=== PATIENT | female | born 1970 | race Caucasian/White ===

== ENCOUNTER 2022-01-05 14:19 | Outpatient (REF) | payer OTHER, SELFPAY ==
[2022-01-05 17:10] LABS: TSH reflex Free T4 0.94 uIU/mL (0.32-4.0)
== END 2022-01-05 14:20 | disposition home or self-care (01) ==
LOC: HO.HMGCLDS 14:19
PROVIDERS: PCP Internal Medicine; Visit Provider Internal Medicine
DX: E66.09 Other obesity due to excess calories (principal)
CPT/HCPCS: 36415; 84443

== ENCOUNTER 2022-05-19 07:38 | Outpatient (REF) | payer OTHER, SELFPAY ==
[2022-05-19 11:17] LABS: MANUAL DIFF FLAG NO
[2022-05-19 11:26] LABS: Basophils Absolute Auto 0.1 X10*3/uL (0.0-0.2); Basophils Percent Auto 1.1 % (0-2); Eosinophils Absolute Auto 0.2 X10*3/uL (0.0-0.4); Eosinophils Percent Auto 3.2 % (0-4); Hematocrit 41.5 % (37.0-47.0); Hemoglobin 13.6 g/dl (12.0-16.0); Imm Gran Abs Auto 0.02 X10*3/uL (0.00-0.03); Imm Gran Pct Auto 0.3 % (0.0-0.4); Lymphocytes Absolute Auto 2.2 X10*3/uL (1.2-4.9); Lymphocytes Percent Auto 35.7 % (20-40); Mean Corpuscular HGB Conc 32.8 g/dl (31.0-35.0); Mean Corpuscular Volume 94.5 fL (80.0-98.0); Mean Platelet Volume 10.4 fL (9.4-12.3); Monocytes Absolute Auto 0.4 X10*3/uL (0.1-1.2); Monocytes Percent Auto 5.9 % (2-11); Neutrophils Absolute Auto 3.4 x10*3/uL (2.0-8.3); Neutrophils Percent Auto 53.8 % (45-73); Platelet Count 338 X10*3/uL (160-400); Red Blood Count 4.39 X10*6/uL (4.20-5.50); Red Cell Distribution Width 12.8 % (11.0-16.0); White Blood Count 6.3 X10*3/uL (4.8-10.8)
[2022-05-19 11:46] LABS: Alanine Aminotransferase 64 U/L (0-31); Albumin Level 4.6 g/dL (3.5-5.0); Alkaline Phosphatase 142 U/L (39-117); Anion Gap 15 (12-20); Aspartate Amino Transferase 39 U/L (5-31); Bilirubin Total 0.7 mg/dL (0.0-1.0); Blood Urea Nitrogen 22 mg/dL (9-16); Calcium 9.6 mg/dL (8.4-10.2); Carbon Dioxide 26 mmol/L (22-29); Chloride 105 mmol/L (96-108); Cholesterol 220 mg/dL; Estimated Glomerular Filt Rate > 60; Glucose Fasting 107 mg/dL (60-99); HDL Cholesterol 66 mg/dL; LDL Cholesterol Calculated 135 mg/dl; Potassium 4.3 mmol/L (3.3-5.1); Sodium 142 mmol/L (135-145); Triglycerides 98 mg/dL
[2022-05-19 12:05] LABS: TSH reflex Free T4 1.62 uIU/mL (0.32-4.0); Vitamin D 25-OH Total 57.1 ng/mL (>30)
== END 2022-05-19 07:39 | disposition home or self-care (01) ==
LOC: HO.HMGCLDS 07:38
PROVIDERS: PCP Internal Medicine; Visit Provider Internal Medicine
DX: Z00.00 Encounter for general adult medical examination without abnormal findings (principal); E78.9 Disorder of lipoprotein metabolism, unspecified
CPT/HCPCS: 36415; 80053; 80061; 82306; 84443; 85025

== ENCOUNTER 2022-08-04 08:39 | Outpatient (REF) | payer OTHER, SELFPAY ==
[2022-08-04 12:38] LABS: Alanine Aminotransferase 51 U/L (0-31); Albumin Level 4.6 g/dL (3.5-5.0); Alkaline Phosphatase 135 U/L (39-117); Anion Gap 15 (12-20); Aspartate Amino Transferase 32 U/L (5-31); Bilirubin Total 0.5 mg/dL (0.0-1.0); Blood Urea Nitrogen 17 mg/dL (9-16); Calcium 9.6 mg/dL (8.4-10.2); Carbon Dioxide 26 mmol/L (22-29); Chloride 107 mmol/L (96-108); Cholesterol 252 mg/dL; Estimated Glomerular Filt Rate > 60; Gamma Glutamyl Transpeptidase 109 U/L (7-33); Glucose Fasting 113 mg/dL (60-99); HDL Cholesterol 68 mg/dL; LDL Cholesterol Calculated 164 mg/dl; Potassium 4.8 mmol/L (3.3-5.1); Sodium 143 mmol/L (135-145); Total Protein 7.1 g/dL (6.5-8.0); Triglycerides 101 mg/dL
[2022-08-06 03:49] LABS: HBS Num1 0.19 mIU/mL (0-7.99); HBc Num1 0.06 S/CO (0.00-0.79); HBsAGNum1 0.28 S/CO (0.00-0.99); Hepatitis B Core Antibody Nonreactive (Nonreactive); Hepatitis B Surface Antigen Negative (Negative); ~HepC Num1 0.09 S/CO (0.00-0.79); ~Hepatitis B Surface Antibody NONREACTIVE (Nonreactive); ~Hepatitis C Antibody Nonreactive (Nonreactive)
== END 2022-08-04 08:40 | disposition home or self-care (01) ==
LOC: HO.HMGCLDS 08:39
PROVIDERS: PCP Internal Medicine; Visit Provider Internal Medicine
DX: R79.89 Other specified abnormal findings of blood chemistry (principal); E78.9 Disorder of lipoprotein metabolism, unspecified
CPT/HCPCS: 36415; 80053; 80061; 82977; 86704; 86706; 86803; 87340

== ENCOUNTER → 2022-09-10 08:31 | Outpatient (BNVA) | payer OTHER, SELFPAY | PROVIDERS: PCP Internal Medicine; Visit Provider Dietitian, Registered | DX: E66.09 Other obesity due to excess calories (principal) | CPT/HCPCS: 97802 ==

== ENCOUNTER 2022-09-21 07:55 | Outpatient (REF) | payer OTHER, SELFPAY ==
--- NOTE | ~2022-09-21 | US_ITS ---
EXAMINATION: US ABDOMEN LIMITED WITH LIVER ELASTOGRAPHY CLINICAL INFORMATION: Abnormal findings of blood chemistry. COMPARISON: None available. TECHNIQUE: Real-time imaging of the abdominal viscera. Noninvasive ultrasound liver fibrosis assessment is performed using Juanito ElastPQ point quantification shear wave elastography (2D-SWE) with a C5-2 MHz transducer. Multiple elastography samples are obtained. FINDINGS: PANCREAS: Normal. The visualized pancreatic head and body are normal in appearance. The remainder of the pancreas is obscured from visualization by the overlying bowel gas. LIVER: The liver demonstrates normal size and shape with increased echogenicity. No focal lesion or intrahepatic biliary duct dilatation. The right lobe measures 15 cm in length. The left lobe measures 10.7 cm in length. Portal flow is towards the liver (hepatopetal). Shear wave liver elastography median stiffness is 1.61 m/s (reference: normal median stiffness is 1.3 m/s or less). IQR/median stiffness to assess sampling precision is 0.05 (reference: good quality data set is IQR/median stiffness of 0.15 or less). GALLBLADDER: 0.5 cm gallbladder wall polyp noted. The gallbladder is physiologically distended without evidence of stones, sludge, wall thickening or pericholecystic fluid. COMMON BILE DUCT: Normal in caliber measuring 0.3 cm in diameter. RIGHT KIDNEY: Normal. No hydronephrosis. No renal calculi or focal parenchymal lesions. The kidney measures 11.8 cm in maximum dimension. FREE FLUID: None. US/US abdomen jimenez w elastography IMPRESSION: 1. Hepatic steatosis. 2. Liver elastography: In the absence of other known clinical signs, measurements rule out compensated advanced chronic liver disease. If there are known clinical signs, further testing may be needed for confirmation. 3. 0.5 cm gallbladder wall polyp. Consider sonographic follow-up in 6 months. REFERENCE: Society of Radiologists in Ultrasound Liver Stiffness Thresholds (2020): LIVER STIFFNESS THRESHOLDS: *Liver Stiffness equal or less than 1.3 m/s: High probability of being normal. *Liver Stiffness less than 1.7 m/s: In the absence of other known clinical signs, rules out compensated advanced chronic liver disease. *Liver Stiffness 1.7-2.1 m/s: Suggestive of compensated advanced chronic liver disease but need further test for confirmation. *Liver Stiffness over 2.1 m/s: Rules in compensated advanced chronic liver disease. *Liver Stiffness over 2.4 m/s: Suggestive of clinically significant portal hypertension. QUALITY OF DATA SET: *IQR/Median value equal or less than 0.15 implies a quality data set. *IQR/Median value over 0.15 implies a poor quality data set. SIGNIFICANT CHANGE FROM PRIOR EXAM: Significant change if liver stiffness measurement is 10% or greater from prior exam. OTHER CONSIDERATIONS: The stage of liver fibrosis may be overestimated in the setting of acute hepatitis, liver inflammation, elevated liver function tests, hepatic vascular congestion, obstructive cholestasis, non-fasting state, and infiltrative diseases such as amyloidosis and lymphoma. In some patients with NAFLD, the liver stiffness thresholds for compensated advanced chronic liver disease may be lower. In causes other than viral hepatitis and NAFLD, liver stiffness thresholds are not well established.
== END 2022-09-21 07:56 | disposition home or self-care (01) ==
LOC: HO.US 07:55
PROVIDERS: PCP Internal Medicine; Visit Provider Internal Medicine
DX: R79.89 Other specified abnormal findings of blood chemistry (principal)
CPT/HCPCS: 76705; 76981

== ENCOUNTER → 2022-10-29 08:24 | Outpatient (BNVA) | payer OTHER, SELFPAY | PROVIDERS: PCP Internal Medicine; Visit Provider Dietitian, Registered | DX: E66.09 Other obesity due to excess calories (principal); Z68.33 Body mass index [BMI] 33.0-33.9, adult; Z71.3 Dietary counseling and surveillance | CPT/HCPCS: 97803 ==

== ENCOUNTER → 2022-11-22 15:58 | Outpatient (REF) | payer OTHER, SELFPAY | LOC: HO.SL 15:58 | PROVIDERS: PCP Internal Medicine; Visit Provider Internal Medicine | DX: G47.33 Obstructive sleep apnea (adult) (pediatric) (principal) | CPT/HCPCS: 95806 ==

== ENCOUNTER → 2022-11-22 16:07 | Outpatient (BNV) | payer OTHER, SELFPAY | PROVIDERS: PCP Internal Medicine; Visit Provider Internal Medicine | DX: G47.33 Obstructive sleep apnea (adult) (pediatric) (principal) | CPT/HCPCS: 95806 ==

== ENCOUNTER 2022-12-06 13:06 | Outpatient (AMB) | payer OTHER, SELFPAY ==
--- NOTE | 2022-12-06 13:14 | MHC.OFFVIS ---
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 Pt reports that she was witnessed apnea spells and recommended to have sleep study to assess sleep apnea. Pt had a home sleep study done. The home sleep study result was significant for severe degree of sleep apnea. The AHI was 50/hr and snoring for 9% of the sleep time. Nocturnal hypoxemia with average O2 sat 90%, lowest O2 sat 70% and O2 sat below 88% for 56 min. Pt reports gasping arousals, non refreshing sleep with daytime tiredness. She is on weight watcher program, but having difficulty losing wt. Sleep questionnaire: Have you ever been diagnosed with a sleep disorder? Yes, severe degree of sleep apnea. Have you ever had a sleep study in the past? Yes, had a home sleep study done. Have you ever been treated for a sleep disorder? Not yet. Do you take medications for a sleep disorder? No. Do you snore? Yes. Do you wake up gasping at night? Yes Do you have episodes of apneas? Yes If yes, are they witnessed? Yes. Do you have episodes of nocturnal chest pain or dyspnea? No. Do you have difficulty initiating sleep? No. Do you have difficulty maintaining sleep? Yes, sometimes. Do you wake up tired? Yes. Do you have headaches upon awakening? No. Do you wake up with dry mouth or throat? Yes. Do you have GERD? Yes. Do you have nocturia? Yes. Do you have nocturnal leg cramps? Not often. Do you have symptoms of restless legs? No. Do you act out your dreams? No. Sleep hygiene questionnaire: What is your usual sleep routine? Usual bedtime is at 12 am; Usual wake up time is at 6am . Do you take naps? Weekend. Is your sleep environment cool, dark, and quiet? Yes Do you exercise? Yes. walk daily. Do you take caffeine or other stimulants? 2 cups of coffee a day. Do you use electronics in bed? Yes. What is your work schedule? 8 am-5 pm Hypersomnolence questionnaire: Do you have daytime tiredness or fatigue? Yes. Do you easily fall asleep when inactive? No. Have you ever had episodes of sudden weakness? No. Have you ever had episodes of sudden weakness associated with strong emotions? No. PFSH Medical History Venous thrombosis Family History Mother Alzheimer disease Social History Housing: House Alcohol intake: current Alcohol intake frequency: 0-2 drinks per day Alcohol type: wine Patient Tobacco Use Status: Never used Tobacco e-Cigarette/Vaping Use: Never Used service: No Current occupational status: employed Cognitive needs: No Hearing needs: No Vision needs: Yes Review of Systems Const All systems reviewed & are unremarkable except as noted in HPI and below ENT Reports Normal hearing present Neuro Reports Normal hearing present Physical Exam Vital Signs: Last Vital Signs Pulse 89 12/06/22 13:16 BP 118/66 12/06/22 13:16 Pulse Ox 95 12/06/22 13:16 Oxygen Delivery Method Room Air 12/06/22 13:16 BMI result Body Mass Index 33.8 Const General: cooperative Nutritional Appearance: obese Orientation/consciousness: patient oriented x3 Neck Neck: Yes full ROM and Yes supple Resp Effort & Inspection: normal respiratory effort and able to speak in complete sentences Neuro General: patient oriented x3 and gait normal Cranial nerves: Yes Bilaterally intact EOM present, Yes Normal facial strength present, Yes Midline tongue present, Yes Symmetric palate elevation present, Yes Normal hearing present, Yes Ability to bilaterally rotate head present and Yes Ability to bilaterally elevate shoulders present Cognition (Neuro): normal cognition Gait exam (Neuro): Normal gait present Motor exam (neuro): 5/5 motor strength present throughout, Pronator motor function not present and no tremor noted Psych Appearance: grossly normal Mental Status: mental status grossly normal Speech and movement: Normal speech and movement present Affect: Anxious affect present Attitude: cooperative Assessment & Plan Assessment & Plan (1) Sleep apnea: Comment: A severe degree of sleep apnea. The AHI was 50/hr and oxygen jimmy was 70%. Code(s): G47.30 - Sleep apnea, unspecified (2) Hypoxemia associated with sleep: Code(s): G47.36 - Sleep related hypoventilation in conditions classified elsewhere Plan Start APAP at [id number] with x1 night pulse oximetry monitoring. Stressed compliance, use CPAP nightly and more than 4 hours. Advised patient to sleep on her left side. Wt reduction advised. Coding Level of Care Code New Pt Level 4 (08706) Diagnoses Sleep apnea G47.30 Hypoxemia associated with sleep G47.36
[2022-12-06 13:16] VITALS: BP 118/66; PULSE 89; O2SAT 95; BMI 33.8
== END 2022-12-06 13:53 | disposition home or self-care (01) ==
LOC: HO.HSMC 13:07
PROVIDERS: PCP Internal Medicine; Visit Provider Nurse Practitioner Family
DX: G47.30 Sleep apnea, unspecified (principal); G47.36 Sleep related hypoventilation in conditions classified elsewhere
CPT/HCPCS: 99204

== ENCOUNTER → 2022-12-06 13:06 | Outpatient (BNVA) | payer OTHER, SELFPAY | PROVIDERS: PCP Internal Medicine; Visit Provider Nurse Practitioner Family ==

== ENCOUNTER 2022-12-08 06:51 | Outpatient (REF) | payer OTHER, SELFPAY ==
[2022-12-08 11:34] LABS: Estimated Average Glucose 111 mg/dL; Hemoglobin A1c % 5.5 %
[2022-12-08 11:53] LABS: Alanine Aminotransferase 40 U/L (0-31); Albumin Level 4.5 g/dL (3.5-5.0); Alkaline Phosphatase 110 U/L (39-117); Anion Gap 15 (12-20); Aspartate Amino Transferase 27 U/L (5-31); Bilirubin Total 0.3 mg/dL (0.0-1.0); Blood Urea Nitrogen 19 mg/dL (9-16); Calcium 9.7 mg/dL (8.4-10.2); Carbon Dioxide 23 mmol/L (22-29); Chloride 109 mmol/L (96-108); Cholesterol 197 mg/dL; Estimated Glomerular Filt Rate > 60; Glucose Fasting 108 mg/dL (60-99); HDL Cholesterol 52 mg/dL; LDL Cholesterol Calculated 125 mg/dl; Potassium 4.1 mmol/L (3.3-5.1); Sodium 143 mmol/L (135-145); Total Protein 7.3 g/dL (6.5-8.0); Triglycerides 103 mg/dL
[2022-12-08 12:11] LABS: TSH reflex Free T4 1.65 uIU/mL (0.32-4.0)
== END 2022-12-08 06:52 | disposition home or self-care (01) ==
LOC: HO.HMGCLDS 06:51
PROVIDERS: PCP Internal Medicine; Visit Provider Internal Medicine
DX: E66.09 Other obesity due to excess calories (principal); R73.9 Hyperglycemia, unspecified
CPT/HCPCS: 36415; 80053; 80061; 83036; 84443

== ENCOUNTER 2022-12-11 08:26 | Outpatient (AMB) | payer OTHER, SELFPAY ==
--- NOTE | 2022-12-11 08:32 | MHC.PC.OV ---
Vital Signs 12/11/22 08:36 Height 5 ft 6 in Weight 209 lb BMI 33.7 BP 118/80 Blood Pressure Location Lt brachial Position Sitting Pulse 82 Pulse Source Pulse Oximeter Pulse Oximetry (%) 96 Oxygen Delivery Method Room Air Intake Visit Reasons: 4 month follow up ( weight/cholesterol ) Intake Note: Pt is here today for a follow up visit. Allergies No Known Allergies [No Known Allergies*] Allergy (Verified 12/11/22 08:36) Medication List - Last Reconciled 12/11/22 by Marija Garcia MD omeprazole magnesium (Prilosec OTC) 20 mg PO DAILY Tobacco use date assessed: 12/11/22 Dental Screening Dental Screen Date: 12/11/22 Did you have a dental visit in the last 12 months?: Yes Did you have a dental problem in the last 6 months where you did not have access to dental care?: No Was dental information given to patient?: Patient has dentist HPI 4 month follow up ( weight/cholesterol ) HPI Details Pt presents for hyperlipid, diet controlled. Patient underwent sleep study for witnessed sleep apnea was found to have severe sleep apnea and CPAP machine with auto PAP setting in 6-20 cm of water was recommended. Patient reports daytime sleepness. She complains of dyspnea on exertion when walking up a few steps. Patient exercises on a treadmill irregularly. Patient denies exercise induced chest pain or palpitations. She denies PND orthopnea. Patient complains of right elbow pain for 2 months worse when using it, lifting or manipulating with a R hand. PFSH Medical History Venous thrombosis Family History Mother Alzheimer disease Social History Housing: House Alcohol intake: current Alcohol intake frequency: 0-2 drinks per day Alcohol type: wine Patient Tobacco Use Status: Never used Tobacco e-Cigarette/Vaping Use: Never Used service: No Current occupational status: employed Cognitive needs: No Hearing needs: No Vision needs: Yes Questionnaire Thrive Questionnaire Date Thrive assessed: 05/18/22 ИВАН-7 AMB Questionnaire ИВАН-7 Date ИВАН - 7 assessed: 05/18/22 Source: Developed by Drs. Grayson Garcia, Rosa Benavidez, Juan Ramon Mckeon and colleagues, with an educational yady from [employer]. Review of Systems Const All systems reviewed & are unremarkable except as noted in HPI and below Reports no additional complaints Eyes Reports no additional complaints ENT Reports no additional complaints Card Reports no additional complaints Resp Reports no additional complaints GI Reports no additional complaints Reports no additional complaints Physical exam (Primary Care) Vital Signs: Last Vital Signs Pulse 82 12/11/22 08:36 BP 118/80 12/11/22 08:36 Pulse Ox 96 12/11/22 08:36 Oxygen Delivery Method Room Air 12/11/22 08:36 BMI result Body Mass Index 33.7 Tobacco/Smoking Status: Tobacco use Status Tobacco use date assessed 12/11/22 12/11/22 08:40 Patient Tobacco Use Status Never used Tobacco 12/11/22 08:40 e-Cigarette/Vaping Use Never Used 12/11/22 08:32 Thrive Assessment: Date of Thrive Assessment Date Thrive assessed 05/18/22 12/11/22 08:32 Const General: no acute distress HENMT Ears: hearing grossly normal bilaterally Neck Neck: Yes supple Resp Effort & Inspection: normal respiratory effort Auscultation: clear to auscultation bilaterally Cardio Rhythm: regular rhythm Heart sounds: S1 normal heart sound present and S2 normal heart sound present Extrem Other: Reproducible tenderness in the right elbow no soft tissue swelling, 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 If the symptoms persist she will be referred for physical therapy (3) Sleep apnea: Comment: A severe degree of sleep apnea. The AHI was 50/hr and oxygen jimmy was 70%. Start on the CPAP with autoPAP OF 6-20 cm of H2O Code(s): G47.30 - Sleep apnea, unspecified Plan: Patient will start CPAP and will follow-up in 6 weeks. She will need overnight oximetry checked after she is established on the CPAP to check for nocturnal hypoxia (4) Hyperlipidemia: Code(s): E78.5 - Hyperlipidemia, unspecified Plan: Significantly improved on diet. Continue low-cholesterol diet and exercise Orders: Orders XR chest 1V Today R06.09 - Other forms of dyspnea CA echo transthoracic complete Today R06.09 - Other forms of dyspnea Medications: New CPAP (CPAP Machine/Device) auto PAP at pressure 6-20 cm H2O 1 ea 0RF meloxicam 15 mg PO DAILY 10 tabs 0RF Coding Level of Care Code Est Pt Level 4 (26184) Diagnoses LUND (dyspnea on exertion) R06.09 Right elbow tendinitis M77.8 Sleep apnea G47.30 Hyperlipidemia E78.5
[2022-12-11 08:36] VITALS: BP 118/80; PULSE 82; O2SAT 96; BMI 33.7
== END 2022-12-11 09:19 | disposition home or self-care (01) ==
PROVIDERS: Visit Provider Internal Medicine
DX: R06.09 Other forms of dyspnea (principal); M77.8 Other enthesopathies, not elsewhere classified; G47.30 Sleep apnea, unspecified; E78.5 Hyperlipidemia, unspecified
CPT/HCPCS: 99214

== ENCOUNTER 2022-12-11 09:16 | Outpatient (REF) | payer OTHER, SELFPAY ==
--- NOTE | ~2022-12-11 | XR_ITS ---
EXAMINATION: XR CHEST CLINICAL INFORMATION: Dyspnea COMPARISON: None available. TECHNIQUE: 2 views of the chest were obtained. FINDINGS: No significant abnormality is noted involving the heart, lungs, mediastinum, or soft tissues tissues. Multiple old right rib fractures. XR/XR chest 2V IMPRESSION: No acute cardiopulmonary disease.
== END 2022-12-11 09:17 | disposition home or self-care (01) ==
LOC: HO.HMGCX 09:16
PROVIDERS: PCP Internal Medicine; Visit Provider Internal Medicine
DX: R06.09 Other forms of dyspnea (principal)
CPT/HCPCS: 71046

== ENCOUNTER 2022-12-17 08:27 | Outpatient (AMB) | payer OTHER, SELFPAY ==
[2022-12-17 08:34] VITALS: BMI 34.0
--- NOTE | 2022-12-17 08:34 | A.OFFVIS_ITS ---
Intake VS Expanded 12/17/22 08:34 Height 5 ft 6 in Weight 210 lb 12.191 oz BMI 34.0 Intake Visit Reasons: obesity Allergies No Known Allergies [No Known Allergies*] Allergy (Verified 12/11/22 08:36) HPI Nutrition Presentation Details Pt presents for MNT f/u for obesity Recently dx with sleep apnea Pt is motivated reports starting to use weight watchers point system. Goal 23 points (ranges 23-40) . Started the prog 3 wks ago. Pt finds this to be a helpful method for healthier meal planning and tracking. Keeps physically active at work plus walking on treadmill 1/2 hr (4.5 MPH rate) Most Recent Diabetes Results: Cholesterol 197 mg/dL 12/08/22 HDL Cholesterol 52 mg/dL 12/08/22 Triglycerides 103 mg/dL 12/08/22 Creatinine 0.75 mg/dL (0.5-1.4) 12/08/22 Blood Urea Nitrogen 19 mg/dL (9-16) H 12/08/22 Sodium 143 mmol/L (135-145) 12/08/22 Potassium 4.1 mmol/L (3.3-5.1) 12/08/22 Chloride 109 mmol/L (96-108) H 12/08/22 Carbon Dioxide 23 mmol/L (22-29) 12/08/22 Calcium 9.7 mg/dL (8.4-10.2) 12/08/22 AST 27 U/L (5-31) 12/08/22 ALT 40 U/L (0-31) H 12/08/22 Total Protein 7.3 g/dL (6.5-8.0) 12/08/22 Albumin 4.5 g/dL (3.5-5.0) 12/08/22 [facility] Medical History Venous thrombosis Family History Mother Alzheimer disease Social History Housing: House Alcohol intake: current Alcohol intake frequency: 0-2 drinks per day Alcohol type: wine Patient Tobacco Use Status: Never used Tobacco e-Cigarette/Vaping Use: Never Used service: No Current occupational status: employed Cognitive needs: No Hearing needs: No Vision needs: Yes Assessment & Plan Assessment & Plan (1) Obesity due to excess calories: Code(s): E66.09 - Other obesity due to excess calories Plan: Educate Pt on reduction Used wt : 95 kg Est kcal as per MSJ: 2162-250 = 1912 (40% carb, 30% fat/prot) Est fluid needs: 2375 ml/d (25 ml/kg bw) Rec fiber: increase to 8-10 g per day and gradually increase as tolerated Rec Na: < 1500 2000 mg /d Educate patient on: (R= Reviewed, V = verbalizes understanding N/R= Needs review N/A= not applicable) * Food sources of carbohydrates and serving adequate serving sizes : R * Difference between complex carbohydrates and simple carbohydrates, role of fiber: R * Differences between fats (MUFA/PUFA/saturated fats, trans fats) and food sources of various fats: R * Food sources of sodium and salt and healthy modifications for heart health and kidney health: N/R * Vitamins and minerals: R * How to interpret food labels: R * Healthy Plate method concept: R V * Physical activity: benefits and precaution: R Patient Instructions: Continue working on practicing mindful eating strategies, eating slow, savoring foods while reducing on portion sizes Work on meal prep to help with staying within recommended points the majority of the gayathri Coding Level of Care Code Nutr Indiv Subseq (92598) Diagnoses Obesity due to excess calories E66.09
== END 2022-12-17 09:01 | disposition home or self-care (01) ==
PROVIDERS: PCP Internal Medicine; Visit Provider Dietitian, Registered
DX: E66.09 Other obesity due to excess calories (principal)

== ENCOUNTER → 2022-12-17 08:27 | Outpatient (BNVA) | payer OTHER, SELFPAY | PROVIDERS: PCP Internal Medicine; Visit Provider Dietitian, Registered | DX: E66.09 Other obesity due to excess calories (principal); Z68.34 Body mass index [BMI] 34.0-34.9, adult; Z71.3 Dietary counseling and surveillance | CPT/HCPCS: 97803 ==

== ENCOUNTER → 2023-01-08 15:47 | Outpatient (REF) | payer OTHER, SELFPAY ==
--- NOTE | 2023-01-08 15:51 | CA_ITS ---
Transthoracic Echocardiogram Patient (Last, First, Middle): Roz Interiano Kay Gender: Female Date of : 1970 Age: 52 Procedure Date: 01/08/2023 Procedure Type: Transthoracic Echocardiogram Location: OP Height: 167.64 cm Weight: 90.72 kg BSA: 2.00 m2 Heart Rate: bpm BP: 128 / 70 mmHg Multimedia Journalist: Referring MD: Marija Garcia MD Symptoms: R06.09 - Other forms of dyspnea Study Quality: Fair ECG Rhythm: Sinus Conclusions: - The left ventricular systolic function is normal. The visually estimated ejection fraction is between 65-70%. - There is mildly increased left ventricular wall thickness. - No obvious valvular pathology seen on this study. Findings Left Ventricle Normal left ventricular cavity size. There is mildly increased left ventricular wall thickness. The left ventricular systolic function is normal. The visually estimated ejection fraction is between 65-70%. There is no evidence of regional wall motion abnormalities. Evidence suggests grade I (mild) diastolic dysfunction. Right Ventricle Mildly increased right ventricular cavity size. There is normal right ventricular systolic function. Atria Both atria are normal in size. Aortic Valve The aortic valve was not well visualized. There is no aortic valve stenosis. There is no aortic valve regurgitation. Mitral Valve The mitral valve appears normal. There is no mitral valve regurgitation. There is no mitral valve stenosis. Pulmonic Valve The pulmonic valve is likely normal. Tricuspid Valve Normal tricuspid valve structure. There is no tricuspid valve regurgitation. There is no evidence of pulmonary hypertension. Great Vessels The asc aorta is normal in size. Venous The inferior vena cava is normal in size and collapses greater than 50% with inspiration. Pericardium/Pleural There is no evidence of pericardial effusion. Prior Study Comparison No prior study available for comparison. Recommendations, Care & Conclusions No obvious valvular pathology seen on this study. Measurements 2D Linear Measurements IVSd: 1.30 0.6-0.9/0.6-1.0 cm LVIDd: 3.42 3.9-5.3/4.2-5.9 cm LVIDd Index: 1.71 2.4-3.2/2.2-3.1 cm/m2 LVIDs: 1.98 2.0-3.6 cm LVPWd: 1.20 0.7-1.1 cm Ao Root: 3.20 2.1-3.5 cm LA Diam: 3.50 2.7-3.8/3.0-4.0 cm LAIDs Index: 1.75 1.5-2.3 cm/m2 LV Mass: 174.17 67-162/88-224 g LV Mass Index: 87.09 43-95/49-115 g/m2 LVOT Diam: 2.20 3.0+(-)1.3 cm 2D Systolic Function EF 4C: 58.20 >55% EF 2C: 66.50 >55% EF BiP: 62.30 >55% Mitral Valve MV Pk E: 0.41 MV PK A: 0.78 MV Decel Time: 159.00 E/A: 0.50 E'Lateral: 6.64 E'Medial: 5.00 E/E' Med: 8.10 E/E' Lat: 6.10 PHT: 47.00 MVA PHT: 4.68 Decel Whiteside: 2.56 Aortic Valve AoV Pk Aaron: 1.26 AoV Mn Aaron: 0.81 AoV VTI: 0.28 AoV Pk Grad: 6.00 Aov Mn Grad: 3.00 ANIL Cont.VTI: 3.94 LVOT LVOT Pk Aaron: 1.10 LVOT Mn Aaron: 0.65 LVOT VTI: 0.29 LVOT Pk Grad: 5.00 LVOT Mn Grad: 2.00 LVOT Diam: 2.20 LVOT Area: 3.80 Diastolic Function MV Pk E: 0.41 MV Pk A: 0.78 E/A: 0.50 E'Medial: 5.00 E/E' Med: 8.10 E' Laterial: 6.64 E/E' Lat: 6.10 Right Ventricle TAPSE (mm): 33.00 TVS' Aaron: 15.00 Tricuspid Valve TR Pk Aaron: 1.60 TR Pk Grad: 10.00 RA Press: 3.00 RVSP: 13.00 Great Vessels Aorta Ao Root-2D: 3.20 2.0-3.7 cm Ao Asc: 3.50 2.1-3.4 cm Pulmonary Valve PV Pk Aaron: 0.95 Peak PV Grad: 4.00 Updated in Other Vendor System with Status of Final Stewart Orozco MD electronically signed on 01/09/2023 11:10:53 AM with status of Final
== END ==
LOC: HO.CARD 15:47
PROVIDERS: PCP Internal Medicine; Visit Provider Internal Medicine
DX: R06.09 Other forms of dyspnea (principal)
CPT/HCPCS: 93306

== ENCOUNTER → 2023-01-08 15:51 | Outpatient (BNV) | payer OTHER, SELFPAY | PROVIDERS: PCP Internal Medicine; Visit Provider Internal Medicine | DX: I51.9 Heart disease, unspecified (principal) | CPT/HCPCS: 93306 ==

== ENCOUNTER 2023-05-03 08:02 | Outpatient (AMB) | payer OTHER, SELFPAY ==
--- NOTE | 2023-05-03 08:16 | MHC.OFFVIS ---
Intake Vital Signs 05/03/23 08:17 Height 5 ft 6 in Weight 211 lb 6 oz BMI 34.1 BP 112/76 Blood Pressure Location Rt brachial Position Sitting Respiration 16 Pulse 77 Pulse Source Pulse Oximeter Pulse Oximetry (%) 95 Oxygen Delivery Method Room Air Intake Visit Reasons: 4m f/u Sleep Apnea - Confirmed Intake Note: Pt presents to the office for 4 month follow up sleep apnea. Adjutant General Required: No Allergies No Known Allergies [No Known Allergies*] Allergy (Verified 05/03/23 08:17) HPI HPI Comments History of Present Illness Details 53 y/o female patient presents for follow up of sleep apnea. The home sleep study result was significant for severe degree of sleep apnea. The AHI was 50/hr and snoring for 9% of the sleep time. Nocturnal hypoxemia with average O2 sat 90%, lowest O2 sat 70% and O2 sat below 88% for 56 min. Pt started CPAP at [id number]. The CPAP compliance and therapy response (02/02/23-05/02/23) reviewed. The usage days 100 % and the average usage hours 6 hrs 30 min. The max pressure was 11.2 and the AHI was 1.8/hr. Pt reports she sleeps well, rested and wakes up refreshed. She feels more energy during daytime. [facility] Medical History Venous thrombosis Family History Mother Alzheimer disease Social History Housing: House Alcohol intake: current Alcohol intake frequency: 0-2 drinks per day Alcohol type: wine Patient Tobacco Use Status: Never used Tobacco e-Cigarette/Vaping Use: Never Used service: No Current occupational status: employed Cognitive needs: No Hearing needs: No Vision needs: Yes Review of Systems Const All systems reviewed & are unremarkable except as noted in HPI and below ENT Reports Normal hearing present Neuro Reports Normal hearing present Physical Exam Vital Signs: Last Vital Signs Pulse 77 05/03/23 08:17 Resp 16 05/03/23 08:17 BP 112/76 05/03/23 08:17 Pulse Ox 95 05/03/23 08:17 Oxygen Delivery Method Room Air 05/03/23 08:17 BMI result Body Mass Index 34.1 Const General: cooperative Nutritional Appearance: obese Orientation/consciousness: patient oriented x3 Neck Neck: Yes full ROM and Yes supple Resp Effort & Inspection: normal respiratory effort and able to speak in complete sentences Neuro General: patient oriented x3 and gait normal Cranial nerves: Yes Bilaterally intact EOM present, Yes Normal facial strength present, Yes Midline tongue present, Yes Symmetric palate elevation present, Yes Normal hearing present, Yes Ability to bilaterally rotate head present and Yes Ability to bilaterally elevate shoulders present Cognition (Neuro): normal cognition Gait exam (Neuro): Normal gait present Motor exam (neuro): 5/5 motor strength present throughout, Pronator motor function not present and no tremor noted Psych Appearance: grossly normal Mental Status: mental status grossly normal Speech and movement: Normal speech and movement present Affect: Anxious affect present Attitude: cooperative Assessment & Plan Assessment & Plan (1) Sleep apnea: Comment: A severe degree of sleep apnea. The AHI was 50/hr and oxygen jimmy was 70%. Start on the CPAP with autoPAP OF 6-20 cm of H2O Code(s): G47.30 - Sleep apnea, unspecified (2) Hypoxemia associated with sleep: Code(s): G47.36 - Sleep related hypoventilation in conditions classified elsewhere Plan Continue to use APAP at [id number] as patient experiences good clinical effects, rested sleep with daytime tiredness has resovled. Stressed compliance, use CPAP nightly and more than 4 hours. Advised patient to sleep on her left side. Wt reduction advised. Coding Level of Care Code Est Pt Level 3 (75924) Diagnoses Sleep apnea G47.30 Hypoxemia associated with sleep G47.36
[2023-05-03 08:17] VITALS: BP 112/76; PULSE 77; RESP 16; O2SAT 95; BMI 34.1
== END 2023-05-03 08:37 | disposition home or self-care (01) ==
PROVIDERS: PCP Internal Medicine; Visit Provider Nurse Practitioner Family
DX: G47.30 Sleep apnea, unspecified (principal); G47.36 Sleep related hypoventilation in conditions classified elsewhere
CPT/HCPCS: 99213

== ENCOUNTER → 2023-05-03 08:02 | Outpatient (BNVA) | payer OTHER, SELFPAY | PROVIDERS: PCP Internal Medicine; Visit Provider Nurse Practitioner Family ==

== ENCOUNTER 2023-05-20 06:13 | Outpatient (REF) | payer OTHER, SELFPAY ==
[2023-05-20 11:39] LABS: MANUAL DIFF FLAG NO
[2023-05-20 11:57] LABS: Basophils Absolute Auto 0.1 X10*3/uL (0.0-0.2); Eosinophils Absolute Auto 0.3 X10*3/uL (0.0-0.4); Hematocrit 42.6 % (37.0-47.0); Hemoglobin 13.7 g/dl (12.0-16.0); Imm Gran Abs Auto 0.03 X10*3/uL (0.00-0.03); Imm Gran Pct Auto 0.4 % (0.0-0.4); Lymphocytes Absolute Auto 2.3 X10*3/uL (1.2-4.9); Lymphocytes Percent Auto 32.4 % (20-40); Mean Corpuscular HGB Conc 32.2 g/dl (31.0-35.0); Mean Corpuscular Hemoglobin 31.1 pg (27.0-33.0); Mean Corpuscular Volume 96.6 fL (80.0-98.0); Mean Platelet Volume 10.5 fL (9.4-12.3); Monocytes Absolute Auto 0.4 X10*3/uL (0.1-1.2); Monocytes Percent Auto 5.8 % (2-11); Neutrophils Absolute Auto 4.1 x10*3/uL (2.0-8.3); Neutrophils Percent Auto 56.4 % (45-73); Platelet Count 315 X10*3/uL (160-400); Red Blood Count 4.41 X10*6/uL (4.20-5.50); Red Cell Distribution Width 12.3 % (11.0-16.0); White Blood Count 7.2 X10*3/uL (4.8-10.8)
[2023-05-20 12:08] LABS: Estimated Average Glucose 111 mg/dL; Hemoglobin A1c % 5.5 % (<6.0)
[2023-05-20 12:22] LABS: Alanine Aminotransferase 48 U/L (0-31); Albumin Level 4.5 g/dL (3.5-5.0); Alkaline Phosphatase 126 U/L (39-117); Anion Gap 12 (12-20); Aspartate Amino Transferase 32 U/L (5-31); Bilirubin Total 0.4 mg/dL (0.0-1.0); Blood Urea Nitrogen 19 mg/dL (9-16); Calcium 9.5 mg/dL (8.4-10.2); Carbon Dioxide 27 mmol/L (22-29); Chloride 106 mmol/L (96-108); Cholesterol 247 mg/dL (<200); Creatinine Urine 108.69 mg/dL; Estimated Glomerular Filt Rate > 60; Glucose Fasting 97 mg/dL (60-99); HDL Cholesterol 64 mg/dL (>40); LDL Cholesterol Calculated 151 mg/dL (<100); Microalbum/Creatinine Ratio Ur 18.4 ug/mg cr (<30); Potassium 4.1 mmol/L (3.3-5.1); Sodium 141 mmol/L (135-145); Total Protein 7.4 g/dL (6.5-8.0); Triglycerides 161 mg/dL (<150)
[2023-05-20 12:39] LABS: TSH reflex Free T4 1.69 uIU/mL (0.32-4.0)
== END 2023-05-20 06:14 | disposition home or self-care (01) ==
LOC: HO.HMGCLDS 06:13
PROVIDERS: PCP Internal Medicine; Visit Provider Internal Medicine
DX: E78.5 Hyperlipidemia, unspecified (principal); R73.9 Hyperglycemia, unspecified; R06.09 Other forms of dyspnea
CPT/HCPCS: 36415; 80053; 80061; 82043; 82570; 83036; 84443; 85025

== ENCOUNTER 2023-05-21 08:02 | Outpatient (AMB) | payer OTHER, SELFPAY ==
[2023-05-21 08:03] VITALS: BP 118/72; PULSE 70; O2SAT 95; BMI 34.1
--- NOTE | 2023-05-21 08:03 | MHC.PC.OV ---
Vital Signs 05/21/23 08:03 Height 5 ft 6 in Weight 211 lb BMI 34.1 BP 118/72 Blood Pressure Location Rt brachial Position Sitting Pulse 70 Pulse Source Pulse Oximeter Pulse Oximetry (%) 95 Oxygen Delivery Method Room Air Intake Visit Reasons: Annual PE Intake Note: Pt is here today for a PE. Allergies No Known Allergies [No Known Allergies*] Allergy (Verified 05/21/23 08:06) Medication List - Last Reconciled 05/21/23 by Marija Garcia MD CPAP (CPAP Machine/Device) auto PAP at pressure 6-20 cm H2O, with all supplies omeprazole magnesium (Prilosec OTC) 20 mg PO DAILY Tobacco use date assessed: 05/21/23 Dental Screening Dental Screen Date: 05/21/23 Did you have a dental visit in the last 12 months?: Yes Did you have a dental problem in the last 6 months where you did not have access to dental care?: No Was dental information given to patient?: Patient has dentist HPI Annual PE HPI Details Patient presents for PE. She has been trying to lose weight unsuccessfully patient has been in to weight watchers and started exercising jogging and walking fast. She has cut down on alcohol intake. COUNTS INCLUDE 234 BEDS AT THE [facility] Medical History Venous thrombosis Family History Mother Alzheimer disease Social History Housing: House Alcohol intake: current Alcohol intake frequency: 0-2 drinks per day Alcohol type: wine Patient Tobacco Use Status: Never used Tobacco e-Cigarette/Vaping Use: Never Used service: No Current occupational status: employed Cognitive needs: No Hearing needs: No Vision needs: Yes Questionnaire PHQ-9 Over the last 2 weeks, how often have you been bothered by any of the following problems? 1. Little interest or pleasure in doing things: not at all 2. Feeling down, depressed, or hopeless: not at all 3. Trouble falling or staying asleep, or sleeping too much: not at all 4. Feeling tired or having little energy: not at all 5. Poor appetite or overeating: not at all 6. Feeling bad about yourself - or that you are a failure or have let yourself or your family down: not at all 7. Trouble concentrating on things, such as reading the newspaper or watching television: not at all 8. Moving or speaking so slowly that other people could have noticed. Or the opposite - being so fidgety or restless that you have been moving around a lot more than usual: not at all 9. Thoughts that you would be better off or of hurting yourself in some way: not at all Total score: 0 Depression Screening Interpretation: Negative Depression Screening Done: Yes Source: Developed by Drs. Grayson Garcia, Rosa Benavidez, Juan Ramon Mckeon and colleagues, with an educational yady from [employer]. Thrive Questionnaire Date Thrive assessed: 05/21/23 I am a: Patient What is your living situation today?: I have a steady place to live Within the past 12 months, did the food you bought not last and you didn't have the money to get more?: Never true Within the past 12 months, did you worry whether your food would run out before you got money to buy more?: Never true Do you have trouble paying for medicines?: No Do you have trouble getting transportation to medical appointments?: No Do you have trouble paying your heating and electricity bill?: No Do you have trouble taking care of your child, family member or friend?: No Do you have trouble with day-to-day activities such as bathing, preparing meals, shopping, managing finances, etc.?: No Are you currently unemployed and looking for a job?: No Are you interested in more education?: No Please select the resources that you would like help with: None Currently or been in a relationship where the following occur: no concerns reported THRIVE Score: 0 ИВАН-7 AMB Questionnaire ИВАН-7 Date ИВАН - 7 assessed: 05/21/23 Feeling nervous, anxious, or on edge: 0 = Not at all Not being able to stop or control worryin = Not at all Worrying too much about different things: 0 = Not at all Trouble relaxin = Not at all Being so restless that it is hard to sit still: 0 = Not at all Becoming easily annoyed or irritable: 0 = Not at all Feeling afraid as if something awful might happen: 0 = Not at all Total ИВАН-7 score (0-4 normal; 5-9 mild; 10-14 moderate; 15-21 severe): 0 Source: Developed by Drs. Grayson Garcia, Rosa Benavidez, Juan Ramon Mckeon and colleagues, with an educational yady from [employer]. Review of Systems Const All systems reviewed & are unremarkable except as noted in HPI and below Reports no additional complaints Eyes Reports no additional complaints ENT Reports no additional complaints Card Reports no additional complaints Resp Reports no additional complaints GI Reports no additional complaints Reports no additional complaints Physical exam (Primary Care) Vital Signs: Last Vital Signs Pulse 70 05/21/23 08:03 BP 118/72 05/21/23 08:03 Pulse Ox 95 05/21/23 08:03 Oxygen Delivery Method Room Air 05/21/23 08:03 BMI result Body Mass Index 34.1 Tobacco/Smoking Status: Tobacco use Status Tobacco use date assessed 05/21/23 05/21/23 08:08 Patient Tobacco Use Status Never used Tobacco 05/21/23 08:08 e-Cigarette/Vaping Use Never Used 05/21/23 08:03 PHQ-9: PHQ-9 Score PHQ-9: Total score 0 05/21/23 08:09 Depression Screening Interpretation: Negative Thrive Assessment: Date of Thrive Assessment Date Thrive assessed 05/21/23 05/21/23 08:09 Currently or been in a relationship where the following occur: no concerns reported Const General: no acute distress HENMT Head: Yes normal to inspection Ears: hearing grossly normal bilaterally Face and sinus: Yes normal facial exam Mouth: Normal oral and palatal mucosa present Throat: Yes posterior oropharynx normal Eyes General: appearance normal, both eyes and all related structures Neck Neck: Yes no lymphadenopathy and Yes supple Resp Effort & Inspection: normal respiratory effort Auscultation: clear to auscultation bilaterally Cardio Rhythm: regular rhythm Heart sounds: S1 normal heart sound present and S2 normal heart sound present GI Inspection: Yes normal to inspection Palpation (GI): Soft to palpation Percussion: Yes normal to percussion Auscultation: normal bowel sounds Assessment and Plan Assessment & Plan (1) Hyperlipidemia: Code(s): E78.5 - Hyperlipidemia, unspecified Plan: Low-cholesterol diet increase physical activity weight loss discussed with the patient. She will follow-up in 3 months with a fasting labs before (2) Hyperglycemia: Code(s): R73.9 - Hyperglycemia, unspecified Plan: ADA diet regular exercise discussed with the patient check A1c in 3 months (3) Sleep apnea: Comment: A severe degree of sleep apnea. The AHI was 50/hr and oxygen jimmy was 70%. Start on the CPAP with autoPAP OF 6-20 cm of H2O Code(s): G47.30 - Sleep apnea, unspecified Plan: Continue CPAP (4) Annual physical exam: Code(s): Z00.00 - Encounter for general adult medical examination without abnormal findings Plan: Well-balanced diet regular physical activity discussed with the patient (5) Hx of mammogram: Comment: [facility] 2022 Code(s): Z92.89 - Personal history of other medical treatment (6) Hx of colonoscopy: Comment: 2018 1 polyp, repeat 5 yrs Code(s): Z98.890 - Other specified postprocedural states (7) Overweight: Code(s): E66.3 - Overweight Plan: Well-balanced diet decrease caloric intake increasing physical activity discussed. Orders: Orders Comprehensive [place]. Panel Fast 3 Months E78.5 - Hyperlipidemia, unspecified, R73.9 - Hyperglycemia, unspecified Hemoglobin A1c 3 Months E78.5 - Hyperlipidemia, unspecified, R73.9 - Hyperglycemia, unspecified Lipid Panel 3 Months E78.5 - Hyperlipidemia, unspecified, R73.9 - Hyperglycemia, unspecified Coding Level of Care Code Est Pt Prev Care 40-64y(61535) Diagnoses Hyperlipidemia E78.5 Hyperglycemia R73.9 Sleep apnea G47.30 Annual physical exam Z00.00 Hx of mammogram Z92.89 Hx of colonoscopy Z98.890 Overweight E66.3
== END 2023-05-21 08:52 | disposition home or self-care (01) ==
PROVIDERS: PCP Internal Medicine; Visit Provider Internal Medicine
DX: E78.5 Hyperlipidemia, unspecified (principal); R73.9 Hyperglycemia, unspecified; G47.30 Sleep apnea, unspecified; Z00.00 Encounter for general adult medical examination without abnormal findings; Z92.89 Personal history of other medical treatment; Z98.890 Other specified postprocedural states; E66.3 Overweight
CPT/HCPCS: 99396

== ENCOUNTER 2023-07-27 07:28 | Outpatient (REF) | payer OTHER, SELFPAY ==
[2023-07-27 11:26] LABS: Alanine Aminotransferase 70 U/L (0-31); Albumin Level 4.3 g/dL (3.5-5.0); Alkaline Phosphatase 148 U/L (39-117); Anion Gap 11 (12-20); Aspartate Amino Transferase 40 U/L (5-31); Bilirubin Total 0.3 mg/dL (0.0-1.0); Blood Urea Nitrogen 20 mg/dL (9-16); Calcium 9.5 mg/dL (8.4-10.2); Carbon Dioxide 26 mmol/L (22-29); Chloride 107 mmol/L (96-108); Cholesterol 247 mg/dL (<200); Estimated Glomerular Filt Rate > 60; Glucose Fasting 101 mg/dL (60-99); HDL Cholesterol 48 mg/dL (>40); LDL Cholesterol Calculated 139 mg/dL (<100); Potassium 3.9 mmol/L (3.3-5.1); Sodium 140 mmol/L (135-145); Total Protein 7.1 g/dL (6.5-8.0); Triglycerides 301 mg/dL (<150)
[2023-07-27 11:28] LABS: Estimated Average Glucose 117 mg/dL; Hemoglobin A1c % 5.7 % (<6.0)
== END 2023-07-27 07:29 | disposition home or self-care (01) ==
LOC: HO.HMGCLDS 07:28
PROVIDERS: PCP Internal Medicine; Visit Provider Internal Medicine
DX: E78.5 Hyperlipidemia, unspecified (principal); R73.9 Hyperglycemia, unspecified
CPT/HCPCS: 36415; 80053; 80061; 83036

== ENCOUNTER 2023-07-30 11:18 | Outpatient (AMB) | payer OTHER, SELFPAY ==
--- NOTE | 2023-07-30 11:50 | A.OFFPC_ITS ---
Vital Signs 07/30/23 11:51 Height 5 ft 6 in Weight 216 lb 9 oz BMI 35.0 BP 110/78 Blood Pressure Location Rt brachial Position Sitting Pulse 74 Pulse Source Pulse Oximeter Pulse Oximetry (%) 95 Oxygen Delivery Method Room Air Intake Visit Reasons: 3 Month F/U Weight Loss Intake Note: Pt is here to follow up for weight loss Allergies No Known Allergies [No Known Allergies*] Allergy (Verified 07/30/23 11:53) Medication List - Last Reconciled 07/30/23 by Marija Garcia MD CPAP (CPAP Machine/Device) auto PAP at pressure 6-20 cm H2O, with all supplies esomeprazole magnesium (Nexium 24HR) 20 mg PO DAILY tirzepatide (Mounjaro) 2.5 mg (0.5 mL) subcut QWEEK 4 weeks Tobacco use date assessed: 07/30/23 Dental Screening Dental Screen Date: 07/30/23 Did you have a dental visit in the last 12 months?: Yes Did you have a dental problem in the last 6 months where you did not have access to dental care?: No Was dental information given to patient?: Patient has dentist HPI 3 Month F/U Weight Loss HPI Details Patient presents for the follow-up on overweight. Patient has been exercising 5 times a week at the gym and cutting down on carbohydrates and caloric intake but has not been able to lose weight. She had seen director toxicology on regular basis. Patient complains of daily headache for the last 3 days after she felt backwards and hit her head. She denies loss of consciousness nausea vomiting change in vision weakness or numbness in extremities. Patient has a history of subarachnoid hemorrhage in 2017 and has a had a follow-up CT for a few years. [facility] Medical History Venous thrombosis Family History Mother Alzheimer disease Social History Housing: House Alcohol intake: current Alcohol intake frequency: 0-2 drinks per day Alcohol type: wine Patient Tobacco Use Status: Never used Tobacco e-Cigarette/Vaping Use: Never Used service: No Current occupational status: employed Cognitive needs: No Hearing needs: No Vision needs: Yes Questionnaire Thrive Questionnaire Date Thrive assessed: 05/21/23 I am a: Patient What is your living situation today?: I have a steady place to live Within the past 12 months, did the food you bought not last and you didn't have the money to get more?: Never true Within the past 12 months, did you worry whether your food would run out before you got money to buy more?: Never true THRIVE Score: 0 AUDIT C Alcohol Use Questionnaire (AUDIT-C) 1. How often do you have a drink containing alcohol?: 2-4 times a month 2. How many drinks containing alcohol do you have on a typical day when you are drinking?: 1 or 2 3. How often do you have six or more drinks on one occasion?: Less than monthly Total Score: 3 ИВАН-7 AMB Questionnaire ИВАН-7 Date ИВАН - 7 assessed: 05/21/23 Feeling nervous, anxious, or on edge: 1 = Several days Not being able to stop or control worryin = Several days Worrying too much about different things: 1 = Several days Trouble relaxin = Several days Being so restless that it is hard to sit still: 1 = Several days Becoming easily annoyed or irritable: 1 = Several days Feeling afraid as if something awful might happen: 1 = Several days Total ИВАН-7 score (0-4 normal; 5-9 mild; 10-14 moderate; 15-21 severe): 7 Source: Developed by Drs. Grayson Garcia, Rosa Benavidez, Juan Ramon Mckeon and colleagues, with an educational yady from [employer]. Review of Systems Const All systems reviewed & are unremarkable except as noted in HPI and below Reports no additional complaints Eyes Reports no additional complaints ENT Reports no additional complaints Card Reports no additional complaints Resp Reports no additional complaints GI Reports no additional complaints Reports no additional complaints Physical exam (Primary Care) Vital Signs: Last Vital Signs Pulse 74 07/30/23 11:51 BP 110/78 07/30/23 11:51 Pulse Ox 95 07/30/23 11:51 Oxygen Delivery Method Room Air 07/30/23 11:51 BMI result Body Mass Index 35.0 Tobacco/Smoking Status: Tobacco use Status Tobacco use date assessed 07/30/23 07/30/23 11:55 Patient Tobacco Use Status Never used Tobacco 07/30/23 11:50 e-Cigarette/Vaping Use Never Used 07/30/23 11:50 Thrive Assessment: Date of Thrive Assessment Date Thrive assessed 05/21/23 07/30/23 11:50 Const General: no acute distress HENMT Head: Yes normal to inspection Ears: hearing grossly normal bilaterally Face and sinus: Yes normal facial exam Throat: Yes posterior oropharynx normal Eyes General: appearance normal, both eyes and all related structures Neck Neck: Yes supple Resp Effort & Inspection: normal respiratory effort Auscultation: clear to auscultation bilaterally Cardio Rhythm: regular rhythm Heart sounds: S1 normal heart sound present and S2 normal heart sound present Assessment and Plan Assessment & Plan (1) Head trauma: Code(s): S09.90XA - Unspecified injury of head, initial encounter Plan: OBTAIN CT OF THE BRAIN (2) Hyperlipidemia: Code(s): E78.5 - Hyperlipidemia, unspecified Plan: Low-cholesterol diet increase physical activity weight lost and taking fish oil supplement discussed with the patient (3) Hyperglycemia: Code(s): R73.9 - Hyperglycemia, unspecified Plan: ADA diet increase physical activity weight loss discussed with the patient (4) Elevated LFTs: Code(s): R79.89 - Other specified abnormal findings of blood chemistry (5) Subarachnoid hemorrhage: Comment: 09/2016 Code(s): I60.9 - Nontraumatic subarachnoid hemorrhage, unspecified (6) Overweight: Code(s): E66.3 - Overweight Plan: Regular physical activity decrease caloric intake discussed with the patient Mounjaro 2.5 mg weekly will be started and continue for 2 months. Patient will return in 2 months with a fasting labs before Orders: Orders Comprehensive [place]. Panel Fast 2 Months E78.5 - Hyperlipidemia, unspecified, R73.9 - Hyperglycemia, unspecified, R79.89 - Other specified abnormal findings of blood chemistry TSH reflex Free T4 2 Months E78.5 - Hyperlipidemia, unspecified, I60.9 - Nontraumatic subarachnoid hemorrhage, unspecified, R73.9 - Hyperglycemia, unspecified, R79.89 - Other specified abnormal findings of blood chemistry, S09.90XA - Unspecified injury of head, initial encounter Lipid Panel 2 Months E78.5 - Hyperlipidemia, unspecified, I60.9 - Nontraumatic subarachnoid hemorrhage, unspecified, R73.9 - Hyperglycemia, unspecified, R79.89 - Other specified abnormal findings of blood chemistry, S09.90XA - Unspecified injury of head, initial encounter CT head/brain wo IV con Today I60.9 - Nontraumatic subarachnoid hemorrhage, unspecified, S09.90XA - Unspecified injury of head, initial encounter Medications: New tirzepatide (Mounjaro) 2.5 mg (0.5 mL) subcut QWEEK 4 weeks 2 mL 3RF Coding Level of Care Code Est Pt Level 4 (49116) Diagnoses Head trauma S09.90XA Hyperlipidemia E78.5 Hyperglycemia R73.9 Elevated LFTs R79.89 Subarachnoid hemorrhage I60.9 Overweight E66.3
[2023-07-30 11:51] VITALS: BP 110/78; PULSE 74; O2SAT 95; BMI 35.0
== END 2023-07-30 12:34 | disposition home or self-care (01) ==
PROVIDERS: PCP Internal Medicine; Visit Provider Internal Medicine
DX: I60.9 Nontraumatic subarachnoid hemorrhage, unspecified (principal); S09.90XA Unspecified injury of head, initial encounter; E66.3 Overweight; Z68.35 Body mass index [BMI] 35.0-35.9, adult; E78.5 Hyperlipidemia, unspecified; R73.9 Hyperglycemia, unspecified
CPT/HCPCS: 99214

== ENCOUNTER 2023-08-02 09:02 | Outpatient (REF) | payer OTHER, SELFPAY ==
--- NOTE | ~2023-08-02 | CT_ITS ---
EXAMINATION: CT HEAD WITHOUT CONTRAST CLINICAL INFORMATION: Head injury COMPARISON: 10/14/2016 TECHNIQUE: Contiguous axial imaging was performed from the skull base to vertex without intravenous administration of contrast. This CT examination was performed using dose optimization techniques as appropriate, variously including the following: *Automated exposure control *Adjustment of mA and/or kV according to patient size (this includes techniques or standardized protocols for targeted exams where dose is matched to indication/reason for exam; i.e. extremities or head) *Use of iterative reconstruction technique DLP: 694 mGy-cm FINDINGS: There is no midline shift. There is no mass effect. There is no hemorrhage. The basal cisterns appear patent. The posterior fossa is grossly within normal limits. No extra-axial collection. The barreto-white matter appears preserved. The ventricular system is within normal limits. There is no evidence for fracture on the bone windows. CT/CT head/brain wo IV con IMPRESSION: Negative acute noncontrast CT of the brain
== END 2023-08-02 09:03 | disposition home or self-care (01) ==
LOC: HO.CT 09:02
PROVIDERS: PCP Internal Medicine; Visit Provider Internal Medicine
DX: S09.90XA Unspecified injury of head, initial encounter (principal); I60.9 Nontraumatic subarachnoid hemorrhage, unspecified
CPT/HCPCS: 70450

== ENCOUNTER 2023-09-20 13:49 | Outpatient (AMB) | payer OTHER, SELFPAY ==
[2023-09-20 13:55] VITALS: BP 130/85; PULSE 71; O2SAT 96; BMI 34.1
--- NOTE | 2023-09-20 13:55 | MHC.PC.OV ---
Vital Signs 09/20/23 13:55 Height 5 ft 6 in Weight 211 lb BMI 34.1 BP 130/85 Blood Pressure Location Lt brachial Position Sitting Pulse 71 Pulse Source Pulse Oximeter Pulse Oximetry (%) 96 Oxygen Delivery Method Room Air Intake Visit Reasons: headaches Intake Note: Pt is here today for a sick visit. Pt c/o headaches for last 3 days now. Allergies No Known Allergies [No Known Allergies*] Allergy (Verified 09/20/23 14:18) Medication List - Last Reconciled 09/20/23 by Marija Garcia MD baclofen 10 mg PO BID CPAP (CPAP Machine/Device) auto PAP at pressure 6-20 cm H2O, with all supplies esomeprazole magnesium (Nexium 24HR) 20 mg PO DAILY semaglutide (weight loss) (Wegovy) 0.25 mg (0.5 mL) subcut Q7D tirzepatide (Mounjaro) 2.5 mg (0.5 mL) subcut QWEEK 4 weeks Tobacco use date assessed: 09/20/23 Dental Screening Dental Screen Date: 07/30/23 HPI headaches HPI Details Pt c/o intermittent headache for 3 days, in the occipital region and neck on and off worse at the end of the day, with some nausea and lightheadedness, no vomiting fever chills change in vision weakness or numbness in extremities. Patient has been under lot of stress at work for the last month. [facility] Medical History Venous thrombosis Family History Mother Alzheimer disease Social History Housing: House Alcohol intake: current Alcohol intake frequency: 0-2 drinks per day Alcohol type: wine Patient Tobacco Use Status: Never used Tobacco e-Cigarette/Vaping Use: Never Used service: No Current occupational status: employed Cognitive needs: No Hearing needs: No Vision needs: Yes Questionnaire Thrive Questionnaire Date Thrive assessed: 05/21/23 ИВАН-7 AMB Questionnaire ИВАН-7 Date ИВАН - 7 assessed: 05/21/23 Source: Developed by Drs. Grayson Garcia, Rosa Benavidez, Juan Ramon Mckeon and colleagues, with an educational yady from [employer]. Review of Systems Const All systems reviewed & are unremarkable except as noted in HPI and below ENT Reports no additional complaints Card Reports no additional complaints Resp Reports no additional complaints GI Reports no additional complaints Reports no additional complaints Physical exam (Primary Care) Vital Signs: Last Vital Signs Pulse 71 09/20/23 13:55 BP 140/96 H 09/20/23 13:55 Pulse Ox 96 09/20/23 13:55 Oxygen Delivery Method Room Air 09/20/23 13:55 BMI result Body Mass Index 34.1 Tobacco/Smoking Status: Tobacco use Status Tobacco use date assessed 09/20/23 09/20/23 14:21 Patient Tobacco Use Status Never used Tobacco 09/20/23 14:21 e-Cigarette/Vaping Use Never Used 09/20/23 13:55 Thrive Assessment: Date of Thrive Assessment Date Thrive assessed 05/21/23 09/20/23 13:55 Const General: no acute distress HENMT Head: Yes normal to inspection Face and sinus: Yes normal facial exam Eyes General: appearance normal, both eyes and all related structures Neck Other: This reproducible tenderness and muscle spasm in upper cervical region Neck: Yes no lymphadenopathy and Yes supple Resp Effort & Inspection: normal respiratory effort Auscultation: clear to auscultation bilaterally Cardio Rhythm: regular rhythm Heart sounds: S1 normal heart sound present and S2 normal heart sound present Neuro General: CN's II-XI intact bilaterally Coordination: [id number] test normal Romberg Test: Negative Assessment and Plan Assessment & Plan (1) Headache: Code(s): R51.9 - Headache, unspecified Plan: For new onset headache most likely related to stress /tension headache baclofen 10 mg q.h.s. is prescribed, stress management discussed with the patient. out of work until October 01. For any worsening of headache patient was advised to go to emergency room Medications: New baclofen 10 mg PO BID 14 tabs 0RF Discontinued tirzepatide (Mounjaro) Discontinued Reason: Doctor's Order 2.5 mg (0.5 mL) subcut QWEEK 4 weeks 2 mL 3RF semaglutide (weight loss) (Wegovy) administer weeks 1 through 4 of therapy Discontinued Reason: Doctor's Order 0.25 mg (0.5 mL) subcut Q7D 2 mL 2RF Coding Level of Care Code Est Pt Level 3 (65682) Diagnoses Headache R51.9
== END 2023-09-20 15:23 | disposition home or self-care (01) ==
PROVIDERS: PCP Internal Medicine; Visit Provider Internal Medicine
DX: R51.9 Headache, unspecified (principal)
CPT/HCPCS: 99213

== ENCOUNTER 2024-05-01 09:00 | Outpatient (AMB) | payer OTHER, SELFPAY ==
[2024-05-01 09:08] VITALS: BP 110/84; PULSE 70; O2SAT 98; BMI 33.6
--- NOTE | 2024-05-01 09:08 | A.OFFVIS_ITS ---
Vital Signs 05/01/24 09:08 Height 5 ft 6 in Weight 208 lb BMI 33.6 BP 110/84 Blood Pressure Location Rt brachial Position Sitting Pulse 70 Pulse Source Pulse Oximeter Pulse Oximetry (%) 98 Oxygen Delivery Method Room Air Intake Visit Reasons: 4m f/u Sleep Apnea Intake Note: patient get letter regarding CPAP not being covered. Accompanied by: Self / Same As Patient Allergies No Known Allergies [No Known Allergies*] Allergy (Verified 05/01/24 09:11) Medication List - Last Reconciled 05/01/24 by Basilio Cam PA-C baclofen 10 mg PO BID CPAP (CPAP Machine/Device) auto PAP at pressure 6-20 cm H2O, with all supplies esomeprazole magnesium (Nexium 24HR) 20 mg PO DAILY HPI Comments Details: 53 y/o female patient presents for follow up of sleep apnea. The home sleep study result was significant for severe degree of sleep apnea. The AHI was 50/hr and snoring for 9% of the sleep time. Nocturnal hypoxemia with average O2 sat 90%, lowest O2 sat 70% and O2 sat below 88% for 56 min. Pt started CPAP at [id number]. The CPAP compliance and therapy response (02/01/2024-04/30/24) reviewed. The usage days 99% and the average usage hours 6 hrs 17 min. The max pressure was 10.2 and the AHI was 0.9/hr She complaints about mask straps being too restrictive and causing olson on her face and seal tends to leak. She cleans her mask daily, changes filters and supplies as needed. Pt reports she sleeps well, rested and wakes up refreshed when using her CPAP. She feels more energy during daytime and would like to see if she is a good candidtate for [facility]. [facility] Medical History Venous thrombosis Family History Mother Alzheimer disease Social History Housing: House Alcohol intake: current Alcohol intake frequency: 0-2 drinks per day Alcohol type: wine Patient Tobacco Use Status: Never used Tobacco e-Cigarette/Vaping Use: Never Used service: No Current occupational status: employed Cognitive needs: No Hearing needs: No Vision needs: Yes Review of Systems ENT Reports Normal hearing present Neuro Reports Normal hearing present Physical Exam Vital Signs: Last Vital Signs Pulse 70 05/01/24 09:08 BP 110/84 05/01/24 09:08 Pulse Ox 98 05/01/24 09:08 Oxygen Delivery Method Room Air 05/01/24 09:08 BMI result Body Mass Index 33.6 Const General: cooperative, comfortable and no acute distress Nutritional Appearance: average body habitus and obese (BMI is elevated to 33.6) Orientation/consciousness: patient oriented x3 HEENT Face and sinus: Yes normal facial exam and Yes face symmetric Teeth and gingiva: other ([place] score of 3) Eyes Pupils: Equal, round and reactive pupils present Neck Neck: Yes full ROM and Yes supple Resp Effort & Inspection: normal respiratory effort and able to speak in complete sentences Neuro General: patient oriented x3 and moves all extremities Cranial nerves: Yes CN's II-XII intact bilaterally, Yes Facial sensation intact/muscles of mastication intact, Yes Equal, round and reactive pupils prese nt, Yes Normal accommodation reflex present, Yes Bilaterally intact EOM present, Yes Nystagmus not present, Yes Normal facial strength present, Yes Midline tongue present, Yes Symmetric palate elevation present, Yes Normal hearing present, Yes Ability to bilaterally rotate head present and Yes Ability to bilaterally elevate shoulders present Cognition (Neuro): normal cognition Gait exam (Neuro): Normal gait present Motor exam (neuro): 5/5 motor strength present throughout and Normal motor muscle tone present throughout Deep tendon reflexes (DTR's): Right triceps reflex intensity grade: 2+, Left triceps reflex intensity grade: 2+, Rt Biceps (C5, C6): 2+, Left biceps reflex intensity grade: 2+, Right brachioradialis reflex intensity grade: 2+, Left brachioradialis reflex intensity grade: 2+, Right patellar reflex intensity grade: 2+ and Left patellar reflex intensity grade: 2+ Coordination: [id number] test normal Psych Appearance: grossly normal Speech and movement: Normal speech and movement present Affect: normal affect Insight: Good insight present (Psych) Judgement: Good judgement present (Psych) Results Reviewed Results Reviewed: CPAP Compliance Report : 02/01/2024- 04/30/2024 >4hours 89/90 / 99%/ 6hrs and 17min/ APAP [id number] Press 7.3-10.2 AHI 0.9 Labs AST / ALT elvated Triglycerides elevated, Fatty Liver/ NAFLD? 05/01/2024 TSH? Fatigue?Vitamin D and B12 with folate- pending. Assessment & Plan Assessment & Plan (1) Hypoxemia associated with sleep: Code(s): G47.36 - Sleep related hypoventilation in conditions classified elsewhere Category: Medical (2) Sleep apnea: Comment: A severe degree of sleep apnea. The AHI was 50/hr and oxygen jimmy was 70%. Start on the CPAP with autoPAP OF 6-20 cm of H2O Code(s): G47.30 - Sleep apnea, unspecified Category: Medical Qualifiers: Sleep apnea type: unspecified type Qualified Code(s): G47.30 - Sleep apnea, unspecified (3) Hypoxemia associated with sleep: Code(s): G47.36 - Sleep related hypoventilation in conditions classified elsewhere Category: Medical (4) Fatigue due to sleep pattern disturbance: Code(s): R53.83 - Other fatigue; G47.9 - Sleep disorder, unspecified Category: Medical (5) Overweight: Code(s): E66.3 - Overweight Category: Medical Plan - Severe Sleep apnea: Continue CPAP Therapy as patient is experiencing good clinical effects, AHI has decreased significantly. -Will Refer to ENT for [facility] Evaluation, as mask tends to be restricting on the face and she is having some trouble with leaks. -Fatigue has improved, Labs Vit D, B12 and Folate, TSH with Free T4 pending. -Patient Education, compliance with CPAP is stressed, as the #1 modifiable RF for Cardio Vascular events and other co-morbidities A1c elevation is eliminating stress on the heart, controlling HTN, maintaining an active lifestyle, diet and lifestyle are the first steps. Daily exercise, walking and eating a good diet with fiber can help with Liver detox. -Follow up in 6 months or sooner if you have any concerns or questions, feel free to call or message us on the portal. Orders: Orders Vitamin D 25-OH Total 05/01/24 G47.30 - Sleep apnea, unspecified, G47.36 - Sleep related hypoventilation in conditions classified elsewhere Vitamin B12 and Folate 05/01/24 G47.30 - Sleep apnea, unspecified, G47.36 - Sleep related hypoventilation in conditions classified elsewhere Referrals Ear/Nose/Throat Referral G47.36 - Sleep related hypoventilation in conditions classified elsewhere Coding Level of Care Code Tele Est Pt Level 4 (39782) Diagnoses Hypoxemia associated with sleep G47.36 Sleep apnea, unspecified type G47.30 Sleep apnea type: unspecified type Fatigue due to sleep pattern disturbance R53.83; G47.9 Overweight E66.3 Time Spent (min) 35 Comment improving
== END 2024-05-01 09:45 | disposition home or self-care (01) ==
PROVIDERS: PCP Internal Medicine; Visit Provider Physician Assistant Medical
DX: G47.30 Sleep apnea, unspecified (principal); G47.36 Sleep related hypoventilation in conditions classified elsewhere; R53.83 Other fatigue; E66.3 Overweight; Z68.33 Body mass index [BMI] 33.0-33.9, adult
CPT/HCPCS: 99214

== ENCOUNTER → 2024-05-01 09:00 | Outpatient (BNVA) | payer OTHER, SELFPAY | PROVIDERS: PCP Internal Medicine; Visit Provider Nurse Practitioner Family ==

== ENCOUNTER 2024-05-04 08:06 | Outpatient (REF) | payer OTHER, SELFPAY ==
[2024-05-04 10:22] LABS: MANUAL DIFF FLAG NO
[2024-05-04 10:33] LABS: Basophils Absolute Auto 0.1 X10*3/uL (0.0-0.2); Basophils Percent Auto 0.8 % (0-2); Eosinophils Absolute Auto 0.2 X10*3/uL (0.0-0.4); Eosinophils Percent Auto 2.5 % (0-4); Hematocrit 41.8 % (37.0-47.0); Hemoglobin 13.8 g/dl (12.0-16.0); Imm Gran Abs Auto 0.01 X10*3/uL (0.00-0.03); Imm Gran Pct Auto 0.2 % (0.0-0.4); Mean Corpuscular Hemoglobin 31.1 pg (27.0-33.0); Mean Corpuscular Volume 94.1 fL (80.0-98.0); Mean Platelet Volume 10.2 fL (9.4-12.3); Monocytes Absolute Auto 0.3 X10*3/uL (0.1-1.2); Monocytes Percent Auto 4.7 % (2-11); Neutrophils Absolute Auto 3.8 x10*3/uL (2.0-8.3); Neutrophils Percent Auto 59.8 % (45-73); Platelet Count 335 X10*3/uL (160-400); Red Blood Count 4.44 X10*6/uL (4.20-5.50); Red Cell Distribution Width 12.3 % (11.0-16.0); White Blood Count 6.4 X10*3/uL (4.8-10.8)
[2024-05-04 10:43] LABS: Estimated Average Glucose 117 mg/dL; Hemoglobin A1C 139.5855 umol/L; Hemoglobin A1c % 5.7 % (<6.0); Total Hemoglobin (HGBA1C) 3588.7407 umol/L
[2024-05-04 11:06] LABS: Alanine Aminotransferase 48 U/L (0-31); Albumin Level 4.5 g/dL (3.5-5.0); Alkaline Phosphatase 113 U/L (39-117); Anion Gap 10 (12-20); Aspartate Amino Transferase 34 U/L (5-31); Bilirubin Total 0.4 mg/dL (0.0-1.0); Blood Urea Nitrogen 17 mg/dL (9-16); Calcium 9.7 mg/dL (8.4-10.2); Carbon Dioxide 25 mmol/L (22-29); Chloride 110 mmol/L (96-108); Cholesterol 218 mg/dL (<200); Estimated Glomerular Filt Rate > 60; Glucose Fasting 117 mg/dL (60-99); HDL Cholesterol 58 mg/dL (>40); LDL Cholesterol Calculated 142 mg/dL (<100); Potassium 4.1 mmol/L (3.3-5.1); Sodium 141 mmol/L (135-145); Total Protein 7.2 g/dL (6.5-8.0); Triglycerides 94 mg/dL (<150)
[2024-05-04 11:18] LABS: TSH reflex Free T4 1.12 uIU/mL (0.32-4.0)
[2024-05-04 11:21] LABS: Vitamin D 25-OH Total 121.8 ng/mL (>30)
[2024-05-04 11:24] LABS: Folate 15.2 ng/mL (> or = 4.0)
[2024-05-04 12:30] LABS: Vitamin B12 641 pg/mL (200-900)
== END 2024-05-04 08:07 | disposition home or self-care (01) ==
LOC: HO.HMGCLDS 08:06
PROVIDERS: PCP Internal Medicine; Referring Provider Physician Assistant Medical; Visit Provider Internal Medicine
DX: Z00.00 Encounter for general adult medical examination without abnormal findings (principal); E78.9 Disorder of lipoprotein metabolism, unspecified; R73.9 Hyperglycemia, unspecified; G47.30 Sleep apnea, unspecified; G47.36 Sleep related hypoventilation in conditions classified elsewhere
CPT/HCPCS: 36415; 80053; 80061; 82306; 82607; 82746; 83036; 84443; 85025

== ENCOUNTER 2024-06-09 08:29 | Outpatient (AMB) | payer OTHER, SELFPAY ==
[2024-06-09 08:32] VITALS: BP 120/78; PULSE 83; RESP 20; TEMP 37.3; O2SAT 96; BMI 33.1
--- NOTE | 2024-06-09 08:32 | A.OFFPC_ITS ---
Vital Signs 06/09/24 08:32 Height 5 ft 6 in Weight 205 lb BMI 33.1 BP 120/78 Blood Pressure Location Lt brachial Position Sitting Respiration 20 Pulse 83 Pulse Source Pulse Oximeter Temp 99.1 F Temp Source Oral Pulse Oximetry (%) 96 Oxygen Delivery Method Room Air Intake Visit Reasons: Annual PE Intake Note: Pt is here today for PE. Allergies No Known Allergies [No Known Allergies*] Allergy (Verified 06/09/24 08:35) Medication List - Last Reconciled 06/09/24 by Marija Garcia MD CPAP (CPAP Machine/Device) auto PAP at pressure 6-20 cm H2O, with all supplies esomeprazole magnesium (Nexium 24HR) 20 mg PO DAILY Tobacco use date assessed: 06/09/24 Dental Screening Dental Screen Date: 06/09/24 Did you have a dental visit in the last 12 months?: Yes Did you have a dental problem in the last 6 months where you did not have access to dental care?: No Was dental information given to patient?: Patient has dentist HPI Annual PE HPI Details Patient presents for physical. Her son is getting in 3 months. She has been trying to lose weight unsuccessfully for a year decreasing caloric intake exercising regularly. Patient would like to try GLP 1 agonist to facilitate weight loss and lower risks for diabetes hypertension and hyperlipidemia. [facility] Medical History (Updated 06/09/24 @ 09:46 by Marija Garcia MD) Lipid disorder Venous thrombosis Surgical History (Updated 06/09/24 @ 09:46 by Marija Garcia MD) Hx of tonsillectomy Family History Mother Alzheimer disease Father Dementia Paternal Aunt Diabetes Stage 4 chronic kidney disease Social History Housing: House Alcohol intake: current Alcohol intake frequency: 0-2 drinks per day Alcohol type: wine Patient Tobacco Use Status: Never used Tobacco e-Cigarette/Vaping Use: Never Used service: No Current occupational status: employed Cognitive needs: No Hearing needs: No Vision needs: Yes Questionnaire PHQ-9 Over the last 2 weeks, how often have you been bothered by any of the following problems? 1. Little interest or pleasure in doing things: several days 2. Feeling down, depressed, or hopeless: several days 3. Trouble falling or staying asleep, or sleeping too much: several days 4. Feeling tired or having little energy: several days 5. Poor appetite or overeating: several days 6. Feeling bad about yourself - or that you are a failure or have let yourself or your family down: not at all 7. Trouble concentrating on things, such as reading the newspaper or watching television: several days 8. Moving or speaking so slowly that other people could have noticed. Or the opposite - being so fidgety or restless that you have been moving around a lot more than usual: not at all 9. Thoughts that you would be better off or of hurting yourself in some way: not at all Total score: 6 Depression Screening Interpretation: Negative Depression Screening Done: Yes 34225 - PHQ-9 Billing: Yes Source: Developed by Drs. Grayson Garcia, Rosa Benavidez, Juan Ramon Mckeon and colleagues, with an educational yady from [employer]. Thrive Questionnaire Date Thrive assessed: 06/09/24 I am a: Patient What is your living situation today?: I have a steady place to live Within the past 12 months, did the food you bought not last and you didn't have the money to get more?: Never true Within the past 12 months, did you worry whether your food would run out before you got money to buy more?: Never true Do you have trouble paying for medicines?: No Do you have trouble getting transportation to medical appointments?: No Do you have trouble paying your heating and electricity bill?: No Do you have trouble taking care of your child, family member or friend?: No Do you have trouble with day-to-day activities such as bathing, preparing meals, shopping, managing finances, etc.?: No Are you currently unemployed and looking for a job?: No Are you interested in more education?: No Please select the resources that you would like help with: Paying for medicine Currently or been in a relationship where the following occur: No concerns reported THRIVE Score: 0 AUDIT C Alcohol Use Questionnaire (AUDIT-C) 1. How often do you have a drink containing alcohol?: 2-4 times a month 2. How many drinks containing alcohol do you have on a typical day when you are drinking?: 1 or 2 3. How often do you have six or more drinks on one occasion?: Never Total Score: 2 ИВАН-7 AMB Questionnaire ИВАН-7 Date ИВАН - 7 assessed: 06/09/24 Feeling nervous, anxious, or on edge: 1 = Several days Not being able to stop or control worryin = Not at all Worrying too much about different things: 1 = Several days Trouble relaxin = Several days Being so restless that it is hard to sit still: 0 = Not at all Becoming easily annoyed or irritable: 1 = Several days Feeling afraid as if something awful might happen: 0 = Not at all Total ИВАН-7 score (0-4 normal; 5-9 mild; 10-14 moderate; 15-21 severe): 4 Source: Developed by Drs. Grayson Garcia, Rosa Benavidez, Juan Ramon Mckeon and colleagues, with an educational yady from [employer]. ИВАН-7 Assessment Billing ИВАН-7 Assessment Tool: ИВАН-7 Assessment 76537 Review of Systems Const All systems reviewed & are unremarkable except as noted in HPI and below Eyes Reports no additional complaints ENT Reports no additional complaints Card Reports no additional complaints Resp Reports no additional complaints GI Reports no additional complaints Reports no additional complaints Physical exam (Primary Care) Vital Signs: Last Vital Signs Temp 99.1 F 06/09/24 08:32 Pulse 83 06/09/24 08:32 Resp 20 06/09/24 08:32 BP 120/78 06/09/24 08:32 Pulse Ox 96 06/09/24 08:32 Oxygen Delivery Method Room Air 06/09/24 08:32 BMI result Body Mass Index 33.1 Tobacco/Smoking Status: Tobacco use Status Tobacco use date assessed 06/09/24 06/09/24 08:41 Patient Tobacco Use Status Never used Tobacco 06/09/24 08:41 e-Cigarette/Vaping Use Never Used 06/09/24 08:41 PHQ-9: PHQ-9 Score PHQ-9: Total score 6 06/09/24 08:41 Depression Screening Interpretation: Negative Thrive Assessment: Date of Thrive Assessment Date Thrive assessed 06/09/24 06/09/24 08:41 Currently or been in a relationship where the following occur: No concerns reported Const General: no acute distress HENMT Head: Yes normal to inspection Ears: hearing grossly normal bilaterally Mouth: Normal oral and palatal mucosa present Eyes General: appearance normal, both eyes and all related structures Neck Neck: Yes no lymphadenopathy and Yes supple Resp Effort & Inspection: normal respiratory effort Auscultation: clear to auscultation bilaterally Cardio Rhythm: regular rhythm Heart sounds: S1 normal heart sound present and S2 normal heart sound present GI Inspection: Yes normal to inspection Palpation (GI): Soft to palpation Percussion: Yes normal to percussion Auscultation: normal bowel sounds Coding Level of Care Code Est Pt Prev Care 40-64y(43256) Diagnoses Hyperlipidemia E78.5 Sleep apnea, unspecified type G47.30 Sleep apnea type: unspecified type Hyperglycemia R73.9 Subarachnoid hemorrhage I60.9 Hx of colonoscopy Z98.890 Normal pelvic exam Z01.419 Annual physical exam Z00.00 Obesity due to excess calories E66.09 Additional Codes ИВАН-7 Assessment Billing - ИВАН-7 Assessment Tool: ИВАН-7 Assessment 14687 ([id number]) PHQ-9 - 65102 - PHQ-9 Billing: Yes ([id number]) Assessment & Plan Assessment & Plan (1) Hyperlipidemia: Comment: diet controlled Code(s): E78.5 - Hyperlipidemia, unspecified Category: Medical Plan: Continue low-cholesterol diet (2) Sleep apnea: Comment: A severe degree of sleep apnea. The AHI was 50/hr and oxygen jimmy was 70%. Start on the CPAP with autoPAP OF 6-20 cm of H2O Code(s): G47.30 - Sleep apnea, unspecified Category: Medical Qualifiers: Sleep apnea type: unspecified type Qualified Code(s): G47.30 - Sleep apnea, unspecified Plan: Continue CPAP follow-up with sleep medicine (3) Hyperglycemia: Code(s): R73.9 - Hyperglycemia, unspecified Category: Medical Plan: A1c is 5.7, ADA diet increase exercise weight loss discussed with the patient (4) Subarachnoid hemorrhage: Comment: 09/2016 Code(s): I60.9 - Nontraumatic subarachnoid hemorrhage, unspecified Category: Medical Plan: Resolved (5) Hx of colonoscopy: Comment: 2018 1 polyp, repeat 5 yrs, Dr. Cartagena Code(s): Z98.890 - Other specified postprocedural states Category: Surgical Plan: Patient will follow-up Dr. Contreras for repeat colonoscopy (6) Normal pelvic exam: Comment: Dr. Pierre 2024 Code(s): Z01.419 - Encounter for gynecological examination (general) (routine) without abnormal findings Category: Medical Plan: Follow-up with nurse obgyn (7) Annual physical exam: Code(s): Z00.00 - Encounter for general adult medical examination without abnormal findings Category: Medical Plan: Well-balanced diet regular physical activity decreasing caloric intake weight loss discussed with the patient. She is up-to-date with the mammogram Pap smear by nurse obgyn and will call GI for colonoscopy (8) Obesity due to excess calories: Comment: BMI 33.1 05/2024 Code(s): E66.09 - Other obesity due to excess calories Category: Medical Plan: Continue decreasing caloric intake increasing physical activity and Wegovy 0.25 mg weekly for the 1st month then increase to 0.5 mg weekly will be started Medications: New Wegovy (semaglutide (weight loss)) administer weeks 1 through 4 of therapy 0.25 mg (0.5 mL) subcut QWEEK 2 mL 0RF NS
--- OUTSIDE RECORDS SUMMARY | 2024-06-09 08:43 | XMS_ITS | Continuity of Care Document ---
Author Organization [facility] Address [address] [place] [address] [place] [address]- Care Team Providers Care Touch Up Carver Name Role Phone Marija Garcia MD Primary Care Physician Encounter 05/14/24 - 05/21/24 [facility] [address] [place] [address]- Attending Physician: Jonah Pierre MD Admitting Physician: Jonah Pierre MD Referring Physician: Jonah Pierre MD Encounter Type: OutPatient One Time Allergies, Adverse Reactions, Alerts No Known Allergies Immunizations Given and Recorded Vaccine Date Status Refusal Reason pneumococcal 23-valent vaccine 10/18/16 Given Medications B complex B complex, Refills 0, Maintenance, 11/27/16 8:57:22 AM EDT, Compound Start Date: 11/27/16 Status: Ordered Repeat number: 1 multivitamin one a day multivitamin one a day, Refills 0, Maintenance, 11/27/16 8:55:00 AM EDT, Compound Start Date: 11/27/16 Status: Ordered Repeat number: 1 Florala's Wort 0 Refills, Maintenance, 11/27/16 8:56:56 AM EDT Start Date: 11/27/16 Status: Ordered Repeat number: 1 Problem List Condition Confirmation Course Effective Dates Status Health [facility] Informant Cerebral vein thrombosis Confirmed Active Results Radiology Reports * Exam Date Time Procedure Performing Provider Status 05/14/24 8:35 AM MM Digital Mammo Screening Ribeiro , Tat subha; Auth (Verified) Notes: (MM Digital Mammo Screening) Reason For Exam: Z12.31 SCREENING RESULT: MM Digital Mammo Screening PROCEDURE: MM Digital Mammo Screening INDICATION: Screening. No known palpable abnormalities. COMPARISON: Earlier mammograms dating back 01/05/2021. TECHNIQUE: Full-field digital CC and MLO 3D tomosynthesis images of both breasts were acquired. Computer-aided detection (CAD) was utilized in the interpretation of this study. DENSITY: There are scattered areas of fibroglandular density. FINDINGS: No suspicious masses, suspicious microcalcifications, or areas of architectural distortion are seen in either breast to suggest malignancy. IMPRESSION: No mammographic evidence of malignancy. RECOMMENDATION: Annual mammographic screening BI-RADS: 1 (Negative) Lay letter mailed to patient WSN: [id number] Ordering Physician: Jonah Pierre Dictated By: Cate Kline MD Dictated Date/Time: 05/14/24 12:11 pm Reviewed By: Cate Kline MD Signed By: Cate Kline MD Signed Date/Time: 05/14/24 12:11 pm Transcribed By: VEE Beach Expert Date/Time: 05/14/24 12:09 pm Birads: Patient Care team information Care Team Personnel Name: Marija Garcia MD Position: [facility] Physician - Primary Care Member Role: PCP Address: [address] [place] [id number] Telecom: Name: Vesta Herrera RN Position: [facility] RN Member Role: Primary Care Nurse Care Team Related Persons Name: CARL FATIMA Name: MATTY FATIMA Insurance Providers Guarantor name: SANDRA KUSHAL Health Plan Information #: 1 [facility] Member Number: [id number] Policy Number: NA Group Number: NA Health Plan Information #: 2 Payer: [facility] Member Number: [id number] Policy Number: NA Group Number: NA
== END 2024-06-09 09:50 | disposition home or self-care (01) ==
PROVIDERS: PCP Internal Medicine; Visit Provider Internal Medicine
DX: Z00.00 Encounter for general adult medical examination without abnormal findings (principal); I60.9 Nontraumatic subarachnoid hemorrhage, unspecified; Z68.33 Body mass index [BMI] 33.0-33.9, adult; E66.09 Other obesity due to excess calories; E78.5 Hyperlipidemia, unspecified; G47.30 Sleep apnea, unspecified; R73.9 Hyperglycemia, unspecified; Z98.890 Other specified postprocedural states

== ENCOUNTER → 2024-06-09 08:29 | Outpatient (BNVA) | payer OTHER, SELFPAY | PROVIDERS: PCP Internal Medicine; Visit Provider Internal Medicine | DX: Z00.00 Encounter for general adult medical examination without abnormal findings (principal); E78.5 Hyperlipidemia, unspecified; G47.30 Sleep apnea, unspecified; R73.9 Hyperglycemia, unspecified; E66.09 Other obesity due to excess calories; Z68.33 Body mass index [BMI] 33.0-33.9, adult; Z99.89 Dependence on other enabling machines and devices | CPT/HCPCS: 96127 ==

== ENCOUNTER 2024-08-21 07:17 | Outpatient (REF) | payer OTHER, SELFPAY ==
[2024-08-21 10:27] LABS: Estimated Average Glucose 114 mg/dL; Hemoglobin A1C 133.6216 umol/L; Hemoglobin A1c % 5.6 % (<6.0); Total Hemoglobin (HGBA1C) 3589.9172 umol/L
[2024-08-21 10:54] LABS: Alanine Aminotransferase 30 U/L (0-31); Albumin Level 4.5 g/dL (3.5-5.0); Alkaline Phosphatase 86 U/L (39-117); Anion Gap 10 (12-20); Aspartate Amino Transferase 23 U/L (5-31); Bilirubin Total 0.4 mg/dL (0.0-1.0); Blood Urea Nitrogen 23 mg/dL (9-16); Calcium 9.6 mg/dL (8.4-10.2); Carbon Dioxide 26 mmol/L (22-29); Chloride 108 mmol/L (96-108); Cholesterol 207 mg/dL (<200); Estimated Glomerular Filt Rate > 60; Glucose Fasting 105 mg/dL (60-99); HDL Cholesterol 51 mg/dL (>40); LDL Cholesterol Calculated 120 mg/dL (<100); Potassium 4.3 mmol/L (3.3-5.1); Sodium 140 mmol/L (135-145); Triglycerides 181 mg/dL (<150)
== END 2024-08-21 07:18 | disposition home or self-care (01) ==
LOC: HO.HMGCLDS 07:17
PROVIDERS: PCP Internal Medicine; Visit Provider Internal Medicine
DX: R79.89 Other specified abnormal findings of blood chemistry (principal)
CPT/HCPCS: 36415; 80053; 80061; 83036

== ENCOUNTER 2024-08-24 11:09 | Outpatient (AMB) | payer OTHER, SELFPAY ==
--- NOTE | 2024-08-24 11:20 | A.OFFPC_ITS ---
Vital Signs 08/24/24 11:21 Height 5 ft 6 in Weight 195 lb BMI 31.5 BP 128/84 Blood Pressure Location Lt brachial Position Sitting Respiration 18 Pulse 83 Pulse Source Pulse Oximeter Temp 98.4 F Temp Source Oral Pulse Oximetry (%) 96 Oxygen Delivery Method Room Air Intake Visit Reasons: 2 month f/u Intake Note: Pt is here today for 2 months follow up visit. Allergies No Known Allergies [No Known Allergies*] Allergy (Verified 08/24/24 11:21) Medication List - Last Reconciled 08/24/24 by Marija Garcia MD CPAP (CPAP Machine/Device) auto PAP at pressure 6-20 cm H2O, with all supplies esomeprazole magnesium (Nexium 24HR) 20 mg PO DAILY Wegovy (semaglutide (weight loss)) 1 mg (0.5 mL) subcut Q7D NS Tobacco use date assessed: 08/24/24 Dental Screening Dental Screen Date: 06/09/24 HPI 2 month f/u HPI Details Patient presents for the follow-up. She has been taking Wegovy and tolerating medication well. Patient lost 10 lb since last visit. Patient has been decreasing caloric intake and exercising regularly [facility] Medical History (Updated 06/09/24 @ 09:46 by Marija Garcia MD) Lipid disorder Venous thrombosis Surgical History (Updated 06/09/24 @ 09:46 by Marija Garcia MD) Hx of tonsillectomy Family History Mother Alzheimer disease Father Dementia Paternal Aunt Diabetes Stage 4 chronic kidney disease Social History Housing: House Alcohol intake: current Alcohol intake frequency: 0-2 drinks per day Alcohol type: wine Patient Tobacco Use Status: Never used Tobacco e-Cigarette/Vaping Use: Never Used service: No Current occupational status: employed Cognitive needs: No Hearing needs: No Vision needs: Yes Questionnaire Thrive Questionnaire Date Thrive assessed: 06/09/24 I am a: Patient What is your living situation today?: I have a steady place to live Within the past 12 months, did the food you bought not last and you didn't have the money to get more?: Never true Within the past 12 months, did you worry whether your food would run out before you got money to buy more?: Never true Do you have trouble paying for medicines?: No Do you have trouble getting transportation to medical appointments?: No Do you have trouble paying your heating and electricity bill?: No Do you have trouble taking care of your child, family member or friend?: No Do you have trouble with day-to-day activities such as bathing, preparing meals, shopping, managing finances, etc.?: No Are you currently unemployed and looking for a job?: No Are you interested in more education?: No Please select the resources that you would like help with: Paying for medicine Currently or been in a relationship where the following occur: No concerns reported THRIVE Score: 0 ИВАН-7 AMB Questionnaire ИВАН-7 Date ИВАН - 7 assessed: 06/09/24 Source: Developed by Drs. Grayson Garcia, Rosa Benavidez, Juan Ramon Mckeon and colleagues, with an educational yady from [employer]. Review of Systems Const All systems reviewed & are unremarkable except as noted in HPI and below Eyes Reports no additional complaints ENT Reports no additional complaints Card Reports no additional complaints Resp Reports no additional complaints GI Reports no additional complaints Physical exam (Primary Care) Vital Signs: Last Vital Signs Temp 98.4 F 08/24/24 11:21 Pulse 83 08/24/24 11:21 Resp 18 08/24/24 11:21 BP 128/84 08/24/24 11:21 Pulse Ox 96 08/24/24 11:21 Oxygen Delivery Method Room Air 08/24/24 11:21 BMI result Body Mass Index 31.5 Tobacco/Smoking Status: Tobacco use Status Tobacco use date assessed 08/24/24 08/24/24 11:21 Patient Tobacco Use Status Never used Tobacco 08/24/24 11:21 e-Cigarette/Vaping Use Never Used 08/24/24 11:21 Thrive Assessment: Date of Thrive Assessment Date Thrive assessed 06/09/24 08/24/24 11:21 Currently or been in a relationship where the following occur: No concerns reported Const General: no acute distress HENMT Head: Yes normal to inspection Face and sinus: Yes normal facial exam Throat: Yes posterior oropharynx normal Eyes General: appearance normal, both eyes and all related structures Neck Neck: Yes supple Resp Effort & Inspection: normal respiratory effort Auscultation: clear to auscultation bilaterally Cardio Rhythm: regular rhythm Heart sounds: S1 normal heart sound present and S2 normal heart sound present Coding Level of Care Code Est Pt Level 4 (46645) Diagnoses Hyperglycemia R73.9 Overweight E66.3 Hyperlipidemia E78.5 Sleep apnea, unspecified type G47.30 Sleep apnea type: unspecified type Assessment & Plan Assessment & Plan (1) Hyperglycemia: Code(s): R73.9 - Hyperglycemia, unspecified Category: Medical Plan: A1c is 5.6, continue ADA diet decrease caloric intake increasing physical activity (2) Overweight: Code(s): E66.3 - Overweight Category: Medical Plan: Increase Wegovy to 1.7 mg weekly continue decreasing caloric intake increasing physical activity follow-up in 3 months to monitor weight loss (3) Hyperlipidemia: Comment: diet controlled Code(s): E78.5 - Hyperlipidemia, unspecified Category: Medical Plan: Continue low-cholesterol diet (4) Sleep apnea: Comment: A severe degree of sleep apnea. The AHI was 50/hr and oxygen jimmy was 70%. Start on the CPAP with autoPAP OF 6-20 cm of H2O Code(s): G47.30 - Sleep apnea, unspecified Category: Medical Qualifiers: Sleep apnea type: unspecified type Qualified Code(s): G47.30 - Sleep apnea, unspecified Plan: Continue CPAP follow-up with pulmonology Orders: Orders Complete Blood Count Auto Diff 3 Months R73.9 - Hyperglycemia, unspecified, Z00.00 - Encounter for general adult medical examination without abnormal findings Lipid Panel 3 Months I60.9 - Nontraumatic subarachnoid hemorrhage, unspecified, R73.9 - Hyperglycemia, unspecified, Z00.00 - Encounter for general adult medical examination without abnormal findings Hemoglobin A1c 3 Months R73.9 - Hyperglycemia, unspecified, Z00.00 - Encounter for general adult medical examination without abnormal findings Comprehensive Pool. Panel Fast 3 Months R73.9 - Hyperglycemia, unspecified, Z00.00 - Encounter for general adult medical examination without abnormal findings Medications: New Wegovy (semaglutide (weight loss)) 1.7 mg (0.75 mL) subcut QWEEK 3 mL 2RF NS
[2024-08-24 11:21] VITALS: BP 128/84; PULSE 83; RESP 18; TEMP 36.9; O2SAT 96; BMI 31.5
== END 2024-08-24 12:16 | disposition home or self-care (01) ==
LOC: HO.HMCC 11:09
PROVIDERS: PCP Internal Medicine; Visit Provider Internal Medicine
DX: R73.9 Hyperglycemia, unspecified (principal); E66.3 Overweight; E78.5 Hyperlipidemia, unspecified; G47.30 Sleep apnea, unspecified

== ENCOUNTER → 2024-08-24 11:09 | Outpatient (BNVA) | payer OTHER, SELFPAY | PROVIDERS: PCP Internal Medicine; Visit Provider Internal Medicine | DX: Z13.89 Encounter for screening for other disorder (principal) ==

== ENCOUNTER 2024-11-16 08:55 | Outpatient (AMB) | payer BC, SELFPAY ==
--- NOTE | 2024-11-16 09:06 | A.OFFPC_ITS ---
Vital Signs 11/16/24 09:07 Height 5 ft 6 in Weight 195 lb BMI 31.5 BP 122/82 Blood Pressure Location Lt brachial Position Sitting Respiration 18 Pulse 93 Pulse Source Pulse Oximeter Temp 98.5 F Temp Source Oral Pulse Oximetry (%) 96 Oxygen Delivery Method Room Air Intake Visit Reasons: 3 month f/u Intake Note: Pt is here today for 3 months follow up visit. Allergies No Known Allergies (No Known Allergies*) Allergy (Verified 11/16/24 09:10) Medication List - Last Reconciled 11/16/24 by Marija Garcia MD CPAP (CPAP Machine/Device) auto PAP at pressure 6-20 cm H2O, with all supplies esomeprazole magnesium (Nexium 24HR) 20 mg PO DAILY Wegovy (semaglutide (weight loss)) 1.7 mg (0.75 mL) subcut QWEEK NS Tobacco use date assessed: 11/16/24 Dental Screening Dental Screen Date: 06/09/24 HPI 3 month f/u HPI Details Patient presents for a follow-up. She complains of left eye irritation yellowish discharge for 1 week. She denies pain I change in the vision. Patient has been taking Wegovy 1.7 mg for weight loss and has been decreasing caloric intake increasing physical activity. She has been under lot of stress because of her dog was diagnosed with vestibulitis. [facility] Medical History (Updated 11/16/24 @ 15:51 by Marija Garcia MD) Hyperlipidemia Hyperglycemia Obesity due to excess calories Sleep apnea Subarachnoid hemorrhage Normal pelvic exam Lipid disorder Venous thrombosis Surgical History Hx of tonsillectomy Family History Mother Alzheimer disease Father Dementia Paternal Aunt Diabetes Stage 4 chronic kidney disease Social History Housing: House Alcohol intake: current Alcohol intake frequency: 0-2 drinks per day Alcohol type: wine Patient Tobacco Use Status: Never used Tobacco e-Cigarette/Vaping Use: Never Used service: No Current occupational status: employed Cognitive needs: No Hearing needs: No Vision needs: Yes Questionnaire Thrive Questionnaire Date Thrive assessed: 06/02/24 I am a: Patient What is your living situation today?: I have a steady place to live Within the past 12 months, did the food you bought not last and you didn't have the money to get more?: Never true Within the past 12 months, did you worry whether your food would run out before you got money to buy more?: Never true Do you have trouble paying for medicines?: No Do you have trouble getting transportation to medical appointments?: No Do you have trouble paying your heating and electricity bill?: No Do you have trouble taking care of your child, family member or friend?: No Do you have trouble with day-to-day activities such as bathing, preparing meals, shopping, managing finances, etc.?: No Are you currently unemployed and looking for a job?: No Are you interested in more education?: No Please select the resources that you would like help with: Paying for medicine Currently or been in a relationship where the following occur: No concerns reported THRIVE Score: 0 ИВАН-7 AMB Questionnaire ИВАН-7 Date ИВАН - 7 assessed: 06/09/24 Source: Developed by Drs. Grayson Garcia, Rosa Benavidez, Juan Ramon Mckeon and colleagues, with an educational yady from [employer]. Review of Systems Const All systems reviewed & are unremarkable except as noted in HPI and below ENT Reports no additional complaints Card Reports no additional complaints Resp Reports no additional complaints GI Reports no additional complaints Reports no additional complaints Physical exam (Primary Care) Vital Signs: Last Vital Signs Temp 98.5 F 11/16/24 09:07 Pulse 93 11/16/24 09:07 Resp 18 11/16/24 09:07 BP 122/82 11/16/24 09:07 Pulse Ox 96 11/16/24 09:07 Oxygen Delivery Method Room Air 11/16/24 09:07 BMI result Body Mass Index 31.5 Tobacco/Smoking Status: Tobacco use Status Tobacco use date assessed 11/16/24 11/16/24 09:18 Patient Tobacco Use Status Never used Tobacco 11/16/24 09:13 e-Cigarette/Vaping Use Never Used 11/16/24 09:13 Thrive Assessment: Date of Thrive Assessment Date Thrive assessed 06/02/24 11/16/24 09:13 Currently or been in a relationship where the following occur: No concerns reported Const General: no acute distress HENMT Head: Yes normal to inspection Eyes General: appearance normal, both eyes and all related structures Resp Effort & Inspection: normal respiratory effort Auscultation: clear to auscultation bilaterally Cardio Rhythm: regular rhythm Heart sounds: S1 normal heart sound present and S2 normal heart sound present GI Inspection: Yes normal to inspection Palpation (GI): Soft to palpation Coding Level of Care Code Est Pt Level 4 (30501) Complex EM visit Add On G2211 Diagnoses Hyperlipidemia E78.5 Hyperglycemia R73.9 Sleep apnea, unspecified type G47.30 Sleep apnea type: unspecified type Obesity due to excess calories E66.09 Conjunctivitis H10.9 Assessment & Plan Assessment & Plan (1) Hyperlipidemia: Comment: diet controlled Code(s): E78.5 - Hyperlipidemia, unspecified Category: Medical Plan: Continue low-cholesterol diet (2) Hyperglycemia: Comment: A1C 5.6 07/2024 Code(s): R73.9 - Hyperglycemia, unspecified Category: Medical Plan: Continue ADA diet increase physical activity weight loss discussed with the (3) Sleep apnea: Comment: A severe degree of sleep apnea. The AHI was 50/hr and oxygen jimmy was 70%. Start on the CPAP with autoPAP OF 6-20 cm of H2O Code(s): G47.30 - Sleep apnea, unspecified Category: Medical Qualifiers: Sleep apnea type: unspecified type Qualified Code(s): G47.30 - Sleep apnea, unspecified Plan: Continue CPAP follow-up with pulmonology (4) Obesity due to excess calories: Comment: BMI 33.1 05/2024 Code(s): E66.09 - Other obesity due to excess calories Category: Medical Plan: Decreasing caloric intake increasing physical activity weight loss discussed with the patient. She will increase Wegovy to 0.4 mg weekly and follow-up in 3 months with a fasting labs before (5) Conjunctivitis: Code(s): H10.9 - Unspecified conjunctivitis Category: Medical Plan: Cipro ophthalmological drops prescribed Orders: Orders Comprehensive [place]. Panel Fast 3 Months E78.5 - Hyperlipidemia, unspecified, R73.9 - Hyperglycemia, unspecified Lipid Panel 3 Months E78.5 - Hyperlipidemia, unspecified, R73.9 - Hyperglycemia, unspecified Hemoglobin A1c 3 Months E78.5 - Hyperlipidemia, unspecified, R73.9 - Hyperglycemia, unspecified TSH reflex Free T4 3 Months E78.5 - Hyperlipidemia, unspecified, R73.9 - Hyperglycemia, unspecified UA w Microscopic 3 Months E78.5 - Hyperlipidemia, unspecified, R73.9 - Hyperglycemia, unspecified Medications: New Wegovy (semaglutide (weight loss)) 2.4 mg (0.75 mL) subcut QWEEK 3 mL 2RF NS ciprofloxacin HCl 0.3% put 1-2 drps in affected eye(s) every 2hr up to 8 times/day x2days; then 4 times/day x5days ophthalmic (eye) 5 mL 0RF Discontinued Wegovy (semaglutide (weight loss)) Discontinued Reason: Doctor's Order 1.7 mg (0.75 mL) subcut QWEEK 3 mL 2RF NS
--- OUTSIDE RECORDS SUMMARY | 2024-11-16 09:06 | XMS_ITS | Patient Health Record ---
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
[2024-11-16 09:07] VITALS: BP 122/82; PULSE 93; RESP 18; TEMP 36.9; O2SAT 96; BMI 31.5
== END 2024-11-16 10:03 | disposition home or self-care (01) ==
PROVIDERS: PCP Internal Medicine; Visit Provider Internal Medicine
DX: E78.5 Hyperlipidemia, unspecified (principal); E66.09 Other obesity due to excess calories; Z68.31 Body mass index [BMI] 31.0-31.9, adult; R73.9 Hyperglycemia, unspecified; G47.30 Sleep apnea, unspecified; H10.9 Unspecified conjunctivitis

== ENCOUNTER 2025-02-17 09:11 | Outpatient (AMB) | payer BC, SELFPAY ==
--- NOTE | 2025-02-17 09:16 | MHC.PC.OV ---
Vital Signs 02/17/25 09:17 Height 5 ft 6 in Weight 195 lb BMI 31.5 BP 122/82 Blood Pressure Location Lt brachial Position Sitting Respiration 17 Pulse 80 Pulse Source Pulse Oximeter Temp 98.5 F Temp Source Oral Pulse Oximetry (%) 96 Oxygen Delivery Method Room Air Intake Visit Reasons: 3 months f/up Intake Note: Pt is here today for 3 months follow up visit. Allergies No Known Allergies (No Known Allergies*) Allergy (Verified 02/17/25 09:20) Medication List - Last Reconciled 02/17/25 by Marija Garcia MD CPAP (CPAP Machine/Device) auto PAP at pressure 6-20 cm H2O, with all supplies esomeprazole magnesium (Nexium 24HR) 20 mg PO DAILY Wegovy (semaglutide (weight loss)) 2.4 mg (0.75 mL) subcut QWEEK NS Tobacco use date assessed: 11/16/24 Dental Screening Dental Screen Date: 06/09/24 HPI 3 months f/up HPI Details Pt presents for f/u obesity. Pt has been taking Wegovy for 1 year and lost 15 lbs. Pt has been decreasing caloric intake and exercising regular for over 6 months. Pt would like to try Zepound to facilitate wieght loss [facility] Medical History Hyperlipidemia Hyperglycemia Obesity due to excess calories Sleep apnea Subarachnoid hemorrhage Normal pelvic exam Lipid disorder Venous thrombosis Surgical History Hx of tonsillectomy Family History Mother Alzheimer disease Father Dementia Paternal Aunt Diabetes Stage 4 chronic kidney disease Social History Housing: House Alcohol intake: current Alcohol intake frequency: 0-2 drinks per day Alcohol type: wine Patient Tobacco Use Status: Never used Tobacco e-Cigarette/Vaping Use: Never Used service: No Current occupational status: employed Cognitive needs: No Hearing needs: No Vision needs: Yes Questionnaire PHQ-9 Over the last 2 weeks, how often have you been bothered by any of the following problems? 1. Little interest or pleasure in doing things: several days 2. Feeling down, depressed, or hopeless: several days 3. Trouble falling or staying asleep, or sleeping too much: several days 4. Feeling tired or having little energy: several days 5. Poor appetite or overeating: several days 6. Feeling bad about yourself - or that you are a failure or have let yourself or your family down: not at all 7. Trouble concentrating on things, such as reading the newspaper or watching television: several days 8. Moving or speaking so slowly that other people could have noticed. Or the opposite - being so fidgety or restless that you have been moving around a lot more than usual: not at all 9. Thoughts that you would be better off or of hurting yourself in some way: not at all Total score: 6 Depression Screening Interpretation: Negative Depression Screening Done: Yes Source: Developed by Drs. Grayson Garcia, Rosa Benavidez, Juan Ramon Mckeon and colleagues, with an educational yady from [employer]. Thrive Questionnaire Date Thrive assessed: 06/02/24 I am a: Patient What is your living situation today?: I have a steady place to live Within the past 12 months, did the food you bought not last and you didn't have the money to get more?: Never true Within the past 12 months, did you worry whether your food would run out before you got money to buy more?: Never true Do you have trouble paying for medicines?: No Do you have trouble getting transportation to medical appointments?: No Do you have trouble paying your heating and electricity bill?: No Do you have trouble taking care of your child, family member or friend?: No Do you have trouble with day-to-day activities such as bathing, preparing meals, shopping, managing finances, etc.?: No Are you currently unemployed and looking for a job?: No Are you interested in more education?: No Please select the resources that you would like help with: Paying for medicine Currently or been in a relationship where the following occur: No concerns reported THRIVE Score: 0 ИВАН-7 AMB Questionnaire ИВАН-7 Date ИВАН - 7 assessed: 06/09/24 Feeling nervous, anxious, or on edge: 0 = Not at all Not being able to stop or control worryin = Not at all Worrying too much about different things: 0 = Not at all Trouble relaxin = Not at all Being so restless that it is hard to sit still: 0 = Not at all Becoming easily annoyed or irritable: 0 = Not at all Feeling afraid as if something awful might happen: 0 = Not at all Total ИВАН-7 score (0-4 normal; 5-9 mild; 10-14 moderate; 15-21 severe): 0 Source: Developed by Drs. Grayson Garcia, Rosa Benavidez, Juan Ramon Mckeon and colleagues, with an educational yady from [employer]. Review of Systems Const All systems reviewed & are unremarkable except as noted in HPI and below Eyes Reports no additional complaints ENT Reports no additional complaints Card Reports no additional complaints Resp Reports no additional complaints GI Reports no additional complaints Reports no additional complaints Physical exam (Primary Care) Vital Signs: Last Vital Signs Temp 98.5 F 02/17/25 09:17 Pulse 80 02/17/25 09:17 Resp 17 02/17/25 09:17 BP 122/82 02/17/25 09:17 Pulse Ox 96 02/17/25 09:17 Oxygen Delivery Method Room Air 02/17/25 09:17 BMI result Body Mass Index 31.5 Tobacco/Smoking Status: Tobacco use Status Tobacco use date assessed 11/16/24 02/17/25 09:22 Patient Tobacco Use Status Never used Tobacco 02/17/25 09:22 e-Cigarette/Vaping Use Never Used 02/17/25 09:22 PHQ-9: PHQ-9 Score PHQ-9: Total score 6 02/17/25 11:42 Depression Screening Interpretation: Negative Thrive Assessment: Date of Thrive Assessment Date Thrive assessed 06/02/24 02/17/25 09:22 Currently or been in a relationship where the following occur: No concerns reported Const General: no acute distress HENMT Face and sinus: Yes normal facial exam Mouth: Normal oral and palatal mucosa present Eyes General: appearance normal, both eyes and all related structures Neck Neck: Yes supple Resp Effort & Inspection: normal respiratory effort Auscultation: clear to auscultation bilaterally Cardio Rhythm: regular rhythm Heart sounds: S1 normal heart sound present and S2 normal heart sound present GI Inspection: Yes normal to inspection Palpation (GI): Soft to palpation Percussion: Yes normal to percussion Auscultation: normal bowel sounds Extrem General: Yes no clubbing, cyanosis or edema Coding Level of Care Code Est Pt Level 4 (96829) Diagnoses Hyperlipidemia E78.5 Hyperglycemia R73.9 Obesity due to excess calories E66.09 Assessment & Plan Assessment & Plan (1) Hyperlipidemia: Comment: diet controlled Code(s): E78.5 - Hyperlipidemia, unspecified Category: Medical Plan: cont low cholesterol diet (2) Hyperglycemia: Comment: A1C 5.6 07/2024 Code(s): R73.9 - Hyperglycemia, unspecified Category: Medical Plan: A1C is 5.6, cont ADA diet increase exercise weight loss discussed with the (3) Obesity due to excess calories: Comment: BMI 33.1 05/2024 Code(s): E66.09 - Other obesity due to excess calories Category: Medical Plan: BMI 31.5, patient plateau on maximum dose of Wegovy. She will Zepbound starting at 10 mg weekly and increase the dose monthly until maximal dose as tolerated Medications: New Zepbound (tirzepatide (weight loss)) 10 mg (0.5 mL) subcut QWEEK 2 mL 0RF NS Discontinued Wegovy (semaglutide (weight loss)) Discontinued Reason: Doctor's Order 2.4 mg (0.75 mL) subcut QWEEK 3 mL 2RF NS
[2025-02-17 09:17] VITALS: BP 122/82; PULSE 80; RESP 17; TEMP 36.9; O2SAT 96; BMI 31.5
--- OUTSIDE RECORDS SUMMARY | 2025-02-17 10:09 | XMS_ITS | Encounter Summary ---
Author Organization [facility] Address [address] [place] [id number] Care Team Providers Care Lab Support Tech Name Role Phone Marija Garica MD Primary Care Provider [phone] Encounter Details Date Type Department Care Team (Latest Contact Info) Description 01/19/2025 Lab Requisition [facility] - Main Lab [address] [facility] [place] [address] Jonah Pierre MD [address] [address] Encounter for gynecological examination (general) (routine) without abnormal findings Social History Tobacco Use Types Packs/Day Years Used Date Smoking Tobacco: Never Assessed Comments Unknown Sex and Gender Information Value Date Recorded Sex Assigned at Not on file Legal Sex Female 12:34 PM EST Gender Identity Not on file Sexual Orientation Not on file documented as of this encounter Plan of Treatment Not on file documented as of this encounter Procedures Procedure Name Priority Date/Time Associated Diagnosis Comments PAP SMEAR Routine 01/18/2025 12:00 AM EDT Encounter for gynecological examination (general) (routine) without abnormal findings documented in this encounter Results * Pap smear (01/18/2025 12:00 AM EDT) Interpretation Negative for intraepithelial lesion or malignancy 01/28/2025 9:30 PM EDT [facility] at 2130 EDT General Categorization Negative 01/28/2025 9:30 PM EDT [facility] Other Findings Shift in tao suggestive of bacterial vaginosis 01/28/2025 9:30 PM EDT [facility] Additional Information Abundant inflammation. 01/28/2025 9:30 PM EDT [facility] Specimen Adequacy Satisfactory for evaluation, endocervical/jorge sformation zone component absent 01/28/2025 9:30 PM EDT [facility] Pap Methodology Liquid Based Pap Test 01/28/2025 9:30 PM EDT [facility] Disclaimer The Pap test is a screening test which carries an inherent false negative rate. These test results should be correlated with the patient's clinical findings and history. This Pap test was processed using an automated screening system. Technical cytopathology services provided by [facility], at [address] [place] [id number] (CLIA # [id number]/Dony Bolton MD, [employer].) 01/28/2025 9:30 PM EDT [facility] Console Pap Interpretation Reported 01/28/2025 9:30 PM EDT [facility] Brushing/Spatula Cervix uteri structure / Unknown 01/18/2025 01/19/2025 6:27 AM EDT us Jonah Pierre MD LAB CYTOLOGY ORDERABLES Final Result Performing Organization Address City/State/[facility] Co de Phone Number [facility] [address] [place] [address], documented in this encounter Visit Diagnoses Diagnosis Encounter for gynecological examination (general) (routine) without abnormal findings documented in this encounter Care Teams Lab Support Tech Relationship Specialty Start Date End Date Marija Garcia MD [address] [place], [place] [id number] PCP - General Internal Medicine 01/27/25 documented as of this encounter
--- OUTSIDE RECORDS SUMMARY | 2025-02-17 10:09 | XMS_ITS | Clinical Summary ---
Author Organization [address] Address [address] [place] [phone] Phone Care Team Providers Care Poultry Dressing Worker Name Role Phone Marija Garcia MD Primary Care Provider [phone] Allergies No known active allergies Medications esomeprazole (NexIUM) [address] capsule Take 1 capsule (20 mg total) by mouth 1 (one) time each day before breakfast. Do not open capsule. Active semaglutide (Wegovy) 0.25 mg/0.5 mL injection pen Inject 0.25 mg under the skin every 7 (seven) days. Active Encounters Date Type Department Care Team Description 01/27/2025 Telephone Gastroenterology - [address] [place] [phone] Marija Cartagena MD 01/19/2025 Lab Requisition [facility] - Main Lab [address] [place] [address] [facility] [place] [address] Jonah Pierre MD Encounter for gynecological examination (general) (routine) without abnormal findings from Last 3 Months Social History Tobacco Use Types Packs/Day Years Used Date Smoking Tobacco: Never Assessed Comments Unknown Sex and Gender Information Value Date Recorded Sex Assigned at Not on file Legal Sex Female 12:34 PM EST Gender Identity Not on file Sexual Orientation Not on file Plan of Treatment Health Maintenance Due Date Last Done Comments Breast Cancer Screening 1970 DTaP,Tdap,and Td Vaccines (1 - Tdap) 02/24/1988 Hepatitis B Vaccines (1 of 3 - 19+ 3-dose series) 02/24/1988 Pneumococcal Vaccine: 50+ Ye ars (1 of 1 - PCV) 2019 Zoster Vaccines (1 of 2) 2019 Depression Screening 04/29/2024 COVID-19 Vaccine ( - 2023-2 5 season) 2024 Influenza Vaccine (#1) 2024 HIV Screening 01/19/2025 Hepatitis C Screening 01/19/2025 Social Influencers of Health Screening 01/19/2025 Cervical Cancer Screening: P ap Smear 01/19/2028 01/18/2025 Colorectal Cancer Screening: Colonoscopy 02/18/2030 02/19/2020 RSV Immunization Adult Patie nts (1 - 1-dose 75+ series) 02/24/2044 HIB Vaccines Aged Out No longer eligi ble based on patient's age to complete this topic HPV Vaccines Aged Out No longer eligi ble based on patient's age to complete this topic Hepatitis A Vaccines Aged Out No long er eligible based on patient's age to complete this topic IPV Vaccines Aged Out No longer eligi ble based on patient's age to complete this topic MMR Vaccines Aged Out No longer eligi ble based on patient's age to complete this topic Meningococcal ACWY Vaccine Aged Out N o longer eligible based on patient's age to complete this topic Meningococcal B Vaccine Aged Out No l onger eligible based on patient's age to complete this topic RSV Immunization Patients Un adwoa 20 months Aged Out No longer eligible b ased on patient's age to complete this topic Varicella Vaccines Aged Out No longer eligible based on patient's age to complete this topic Procedures Procedure Name Priority Date/Time Associated Diagnosis Comments PAP SMEAR Routine 01/18/2025 12:00 AM EDT Encounter for gynecological examination (general) (routine) without abnormal findings EXTERNAL COLONOSCOPY REPORT Routine 02/19/2020 10:42 AM EDT from Last 3 Months or Most Recently Relevant to Health Maintenance Results * Pap smear (01/18/2025 12:00 AM EDT) Interpretation Negative for intraepithelial lesion or malignancy 01/28/2025 9:30 PM EDT [facility] at 2130 EDT General Categorization Negative 01/28/2025 9:30 PM EDT [facility] Other Findings Shift in tao suggestive of bacterial vaginosis 01/28/2025 9:30 PM EDT [facility] Additional Information Abundant inflammation. 01/28/2025 9:30 PM EDT [facility] Specimen Adequacy Satisfactory for evaluation, endocervical/jorge sformation zone component absent 01/28/2025 9:30 PM EDT [facility] Pap Methodology Liquid Based Pap Test 01/28/2025 9:30 PM EDT [facility] Disclaimer The Pap test is a screening test which carries an inherent false negative rate. These test results should be correlated with the patient's clinical findings and history. This Pap test was processed using an automated screening system. Technical cytopathology services provided by [facility], at [address] [place] [id number] (CLIA # [id number]/Dony Bolton MD, Back Shoe Worker.) 01/28/2025 9:30 PM EDT [facility] Console Pap Interpretation Reported 01/28/2025 9:30 PM EDT [facility] Brushing/Spatula Cervix uteri structure / Unknown 01/18/2025 01/19/2025 6:27 AM EDT Jonah Pierre MD LAB CYTOLOGY ORDERABLES Final Result [facility] [address] [place] [address], * External Colonoscopy Report (02/19/2020 10:42 AM EDT) Anatomical Region Laterality Modality Endoscopy us Historical Provider GI~PROCEDURE ORDERABLES F inal Result from Last 3 Months or Most Recently Relevant to Health Maintenance Insurance [facility] Care Teams Poultry Dressing Worker Relationship Specialty Start Date End Date Marija Garcia MD [address] [place] [id number] PCP - General Internal Medicine 01/27/25
== END 2025-02-17 11:12 | disposition home or self-care (01) ==
LOC: HO.HMCC 09:12
PROVIDERS: PCP Internal Medicine; Visit Provider Internal Medicine
DX: E78.5 Hyperlipidemia, unspecified (principal); R73.9 Hyperglycemia, unspecified; E66.09 Other obesity due to excess calories; Z68.31 Body mass index [BMI] 31.0-31.9, adult

== ENCOUNTER 2025-03-22 15:24 | Outpatient (AMB) | payer BC, SELFPAY ==
--- NOTE | 2025-03-22 15:29 | A.OFFVIS_ITS ---
Vital Signs 03/22/25 15:30 Height 5 ft 6 in Weight 199 lb 8 oz BMI 32.2 BP 114/82 Blood Pressure Location Rt brachial Position Sitting Pulse 88 Pulse Source Pulse Oximeter Pulse Oximetry (%) 98 Oxygen Delivery Method Room Air Intake Visit Reasons: 6m follow up Intake Note: Patient presents follow up Sleep. Labs/Compliance in chart(90/90days, >=4hrs- 100%, Average usage- 7hr 5min, Med pressure- 7.6, Med leaks-2.8, AHI-1.2). Accompanied by: Self / Same As Patient Allergies No Known Allergies (No Known Allergies*) Allergy (Verified 03/22/25 15:34) HPI Comments Details: 55 y/o female patient presents for follow up of severe VOLODYMYR. The HST was c/w severe volodymyr AHI 50 snoring 9% of TIB. She had nocturnal hypoxemia with avg O2 90%, O2 desaturation to 70%, and below 88% for 56 min. Pt started CPAP at [id number]. The CPAP compliance Report 11/2024- 02/2025 reviewed with pt. Total avg use is 90/90 days and >4 hours is 100%. Avg use is 7 hours. Med press 7.6cmH20 and Med Leaks 2.8cmH20 AHI is 1.2/Hr. In September 2016 she had a SAH due to venous thrombosis, and was rushed to the [facility] ED, then transferred to [facility]. She has taken a long time to get acclimated to her cpap mask and likes the pressures, temperatures and feels refreshed in the mornings. She cleans her mask daily, changes filters and supplies as needed. She is interested in Inspire Implant therapy and wants to do some research and decide if she will be a good candidate for the procedure in the future. We discussed options and DISE procedure with ENT. Her memory mood and diet is stable, continues to gain weight however is looking into weight reduction with Zepbound. Denies smoking and has alcohol socially. Denies, morning headaches, bruxism, clenching of jaws, Gerd, parasomnias, RLS symptoms. FH+ Mom diagnosed at 55 with AD, Dad diagnosed in his late 70s for AD. [facility] Medical History Hyperlipidemia Hyperglycemia Obesity due to excess calories Sleep apnea Subarachnoid hemorrhage Normal pelvic exam Lipid disorder Venous thrombosis Surgical History Hx of tonsillectomy Family History Mother Alzheimer disease Father Dementia Paternal Aunt Diabetes Stage 4 chronic kidney disease Social History Housing: House Alcohol intake: current Alcohol intake frequency: 0-2 drinks per day Alcohol type: wine Patient Tobacco Use Status: Never used Tobacco e-Cigarette/Vaping Use: Never Used service: No Current occupational status: employed Cognitive needs: No Hearing needs: No Vision needs: Yes Review of Systems ENT Reports Normal hearing present Neuro Reports Normal hearing present Physical Exam Vital Signs: Last Vital Signs Pulse 88 03/22/25 15:30 BP 114/82 03/22/25 15:30 Pulse Ox 98 03/22/25 15:30 Oxygen Delivery Method Room Air 03/22/25 15:30 BMI result Body Mass Index 32.2 Const General: cooperative, comfortable and no acute distress Nutritional Appearance: average body habitus and obese (BMI is elevated to 33.6) Orientation/consciousness: patient oriented x3 HEENT Face and sinus: Yes normal facial exam and Yes face symmetric Teeth and gingiva: other ([place]i score of 3) Eyes Pupils: Equal, round and reactive pupils present Neck Neck: Yes full ROM and Yes supple Resp Effort & Inspection: normal respiratory effort and able to speak in complete sentences Neuro General: patient oriented x3 and moves all extremities Cranial nerves: Yes Equal, round and reactive pupils present, Yes Normal accommodation reflex present, Yes Normal facial strength present, Yes Midline tongue present, Yes Normal hearing present, Yes Ability to bilaterally rotate head present and Yes Ability to bilaterally elevate shoulders present Cognition (Neuro): normal cognition Gait exam (Neuro): Normal gait present Motor exam (neuro): 5/5 motor strength present throughout and Normal motor muscle tone present throughout Psych Appearance: grossly normal Speech and movement: Normal speech and movement present Affect: normal affect Insight: Good insight present (Psych) Judgement: Good judgement present (Psych) Results Reviewed Results Reviewed: The CPAP compliance Report 11/2024- 02/2025 reviewed with pt. Total avg use is 90/90 days and >4 hours is 100%. Avg use is 7 hours. Med press 7.6cmH20 and Med Leaks 2.8cmH20 AHI is 1.2/Hr. Assessment & Plan Assessment & Plan (1) VOLODYMYR on CPAP: Code(s): G47.33 - Obstructive sleep apnea (adult) (pediatric) Category: Medical (2) Hypoxemia associated with sleep: Code(s): G47.36 - Sleep related hypoventilation in conditions classified elsewhere Category: Medical (3) Sleep apnea: Comment: A severe degree of sleep apnea. The AHI was 50/hr and oxygen jimmy was 70%. Start on the CPAP with autoPAP OF 6-20 cm of H2O Code(s): G47.30 - Sleep apnea, unspecified Category: Medical Qualifiers: Sleep apnea type: unspecified type Qualified Code(s): G47.30 - Sleep apnea, unspecified (4) Hypoxemia associated with sleep: Code(s): G47.36 - Sleep related hypoventilation in conditions classified elsewhere Category: Medical (5) Fatigue due to sleep pattern disturbance: Code(s): R53.83 - Other fatigue; G47.9 - Sleep disorder, unspecified Category: Medical (6) Overweight: Code(s): E66.3 - Overweight Category: Medical Plan Severe Sleep apnea, Continue CPAP Therapy as patient is experiencing good clinical effects. Continue to wask mask, rinse hoses, change filters and fill reservoir with water. BMI is elevated f/u with PCP for Zepbound therapy. Will Refer to ENT for Inspire Implant Evaluation, DISE procedure at next visit, she will do more research. Follow up in 6 months or sooner if you have any concerns or questions, feel free to call or message us on the portal. Coding Level of Care Code Est Pt Level 4 (40102) Diagnoses VOLODYMYR on CPAP G47.33 Hypoxemia associated with sleep G47.36 Sleep apnea, unspecified type G47.30 Sleep apnea type: unspecified type Fatigue due to sleep pattern disturbance R53.83; G47.9 Overweight E66.3
[2025-03-22 15:30] VITALS: BP 114/82; PULSE 88; O2SAT 98; BMI 32.2
--- OUTSIDE RECORDS SUMMARY | 2025-03-22 20:02 | XMS_ITS | Clinical Summary ---
Author Organization [address] Address [address] [place] [phone] Phone Care Team Providers Care Supervisor Fusing Room Name Role Phone Marija Garcia MD Primary Care Provider [phone] Allergies No known active allergies Medications esomeprazole (NexIUM) [address] capsule Take 1 capsule (20 mg total) by mouth 1 (one) time each day before breakfast. Do not open capsule. Active semaglutide (Wegovy) 0.25 mg/0.5 mL injection pen Inject 0.25 mg under the skin every 7 (seven) days. Active Encounters Date Type Department Care Team Description 01/27/2025 Telephone Gastroenterology - [address] [place] [phone] Marija Cartagena MD 01/19/2025 Lab Requisition [facility] - Main Lab [address] [place] [address] [place] [address] Jonah Pierre MD Encounter for [...] 2) 2019 Depression Screening 04/29/2024 COVID-19 Vaccine (1 - 2024-2 6 season) 2024 Influenza Vaccine (#1) 2024 HIV [...] lesion or malignancy 01/28/2025 9:30 PM EDT [facility] at 2130 EDT General Categorization Negative 01/28/2025 9:30 PM EDT [facility] Other Findings Shift in tao suggestive of bacterial vaginosis 01/28/2025 9:30 PM EDT [facility] Additional Information Abundant inflammation. 01/28/2025 9:30 PM EDT [facility] Specimen Adequacy Satisfactory for evaluation, endocervical/jorge sformation zone component absent 01/28/2025 9:30 PM EDT [facility] Pap Methodology Liquid Based Pap Test 01/28/2025 9:30 PM EDT [facility] Disclaimer The Pap test is a screening test which carries an inherent false negative rate. These test results should be correlated with the patient's clinical findings and history. This Pap test was processed using an automated screening system. Technical cytopathology services provided by [facility], at [address] [place] [id number] (CLIA # [id number]/Dony Bolton MD, Steam Power Plant Operator.) 01/28/2025 9:30 PM EDT [facility] Console Pap Interpretation Reported 01/28/2025 9:30 PM EDT [facility] Brushing/Spatula Cervix uteri structure / Unknown 01/18/2025 01/19/2025 6:27 AM EDT Jonah Pierre MD LAB CYTOLOGY ORDERABLES Final Result [facility] [address] [place] [address], * External Colonoscopy Report (02/19/2020 10:42 AM EDT) Anatomical Region Laterality Modality Endoscopy us Historical Provider GI~PROCEDURE ORDERABLES F inal Result from Last 3 Months or Most Recently Relevant to Health Maintenance Insurance [facility] Care Teams Supervisor Fusing Room Relationship Specialty Start Date End Date Marija Garcia MD [address] [place] [id number] PCP - General Internal Medicine 01/27/25
--- OUTSIDE RECORDS SUMMARY | 2025-03-22 20:02 | XMS_ITS | Encounter Summary ---
Author Organization [facility] Address [address] [place] [phone] Care Team Providers Care Product Operations Associate Name Role Phone Marija Garcia MD Primary Care Provider [phone] Encounter Details Date Type Department Care Team (Latest Contact Info) Description 01/19/2025 Lab Requisition [facility] - Main Lab [address] [facility] [place] [address] Jonah Pierre MD [address] [phone] Encounter for gynecological examination (general) [...] lesion or malignancy 01/28/2025 9:30 PM EDT [facility] at 2130 EDT General Categorization Negative 01/28/2025 9:30 PM EDT [facility] Other Findings Shift in tao suggestive of bacterial vaginosis 01/28/2025 9:30 PM EDT [facility] Additional Information Abundant inflammation. 01/28/2025 9:30 PM EDT [facility] Specimen Adequacy Satisfactory for evaluation, endocervical/jorge sformation zone component absent 01/28/2025 9:30 PM EDT [facility] Pap Methodology Liquid Based Pap Test 01/28/2025 9:30 PM EDT [facility] Disclaimer The Pap test is a screening test which carries an inherent false negative rate. These test results should be correlated with the patient's clinical findings and history. This Pap test was processed using an automated screening system. Technical cytopathology services provided by [facility], at [address] [place] [id number] (CLIA # [id number]/Dony Bolton MD, Streetsweeper Operator.) 01/28/2025 9:30 PM EDT [facility] Console Pap Interpretation Reported 01/28/2025 9:30 PM EDT [facility] Brushing/Spatula Cervix uteri structure / Unknown 01/18/2025 01/19/2025 6:27 AM EDT us Jonah Pierre MD LAB CYTOLOGY ORDERABLES Final Result Performing Organization Address City/State/[facility] Co de Phone Number [facility] [address] [place] [address], documented in this encounter Visit Diagnoses Diagnosis Encounter for gynecological examination (general) (routine) without abnormal findings documented in this encounter Care Teams Product Operations Associate Relationship Specialty Start Date End Date Marija Garcia MD [address] [place], [place] [phone] PCP - General Internal Medicine 01/27/25 documented as of this encounter
== END 2025-03-22 16:03 | disposition home or self-care (01) ==
LOC: HO.HSMS 15:25
PROVIDERS: PCP Internal Medicine; Visit Provider Physician Assistant Medical
DX: G47.33 Obstructive sleep apnea (adult) (pediatric) (principal); E66.3 Overweight; G47.36 Sleep related hypoventilation in conditions classified elsewhere; R53.83 Other fatigue
CPT/HCPCS: 99214